=== PATIENT | female | born 1955 | race Caucasian/White ===

== ENCOUNTER 2025-03-17 09:28 | Outpatient (AMB) | payer MEDICARE, OTHER, SELFPAY ==
--- OUTSIDE RECORDS SUMMARY | 2025-03-17 09:41 | XMS_ITS | Encounter Summary ---
Author Organization [facility] Address [address] [place] [address] Care Team Providers Care Agency Sales Development Associate Name Role Phone Pastor Oro DO, Diana Primary Care Provider + Encounter Details Date Type Department Care Team (Late st Contact Info) Description 12/05/2024 Orders Only [facility] CT Scan [address], [place] [phone] Michelle Gonzales MD [address] [place], [place] [phone] Social History Tobacco Use Types Packs/Day Years Used Date Smoking Tobacco: Never Passive Smoke Exposure: Past Smokeless Tobacco: Never Alcohol Use Standard Drinks/Week Comments Not Currently 0 (1 standard drink = 0.6 oz pur e alcohol) occasional - onece a month [facility] Utilities Answer Date Recorded In the past 12 months has e electric, gas, oil, or water [employer] threatened to shut off services in your home? No 12/08/2024 Hunger Vital Sign Answer Date Recorded Within the past 12 months, y ou worried that your food would run out before you got the money to buy more. Never true 12/08/19 25 Within the past 12 months, t he food you bought just didn't last and you didn't have money to get more. Never true 12/08/2024 Transportation Answer Date Recorded In the past 12 months, has l ack of reliable transportation kept you from medical appointments, meetings, work or from getting things needed for daily living? No 12/08/2024 Housing Answer Date Recorded Housing Risk Low 2 12/08/2024 Housing Risk Medium Not on file 12/08/2024 Housing Risk High Not on file 12/08/2024 What is your living situation today? [facility] 12/08/2024 Comments No Sex and Gender Information Value Date Recorded Sex Assigned at Female 03/24/2024 9:56 AM EDT Legal Sex Female 12:05 AM EDT Gender Identity Female 04/14/2024 2:41 PM EDT Sexual Orientation Straight 04/18/2024 8: 44 AM EDT documented as of this encounter Plan of Treatment Upcoming Encounters Date Type Department Care Team (Late st Contact Info) Description 06/07/2025 9:30 AM EDT Office Visit [facility] [address] [facility] Family Practice Department [address] [place] [id number] Malini Godwin NP [address] [place] [address] 06/09/2025 2:30 PM EDT Follow-Up [facility] Nephrology [address] [facility] [address] [place] [address] Bipin Bobby MD [address] [place] [phone] documented as of this encounter Visit Diagnoses Not on filedocumented in this encounter Care Teams Agency Sales Development Associate Relationship Specialty Start Date End Date eKlly Baumann DO [address] [place] [address] PCP - General Family Medicine 03/24/24 documented as of this encounter
--- OUTSIDE RECORDS SUMMARY | 2025-03-17 09:41 | XMS_ITS | Clinical Summary ---
Author Organization [facility] [employer] Address [address] [place] [address] Care Team Providers Care Answering Service Telephone Operator Name Role Phone Nadine Harley NP Primary Care Provider Immunizations Name Administration Dates Next Due Shingrix Recombinant Dose 05/24/2020 Social History Tobacco Use Types Packs/Day Years Used Date Smoking Tobacco: Never Assessed Comments Unknown Sex and Gender Information Value Date Recorded Sex Assigned at Not on file Legal Sex Female 8:47 AM EDT Gender Identity Not on file Sexual Orientation Not on file Plan of Treatment Health Maintenance Due Date Last Done Comments Colorectal Cancer: COLONOS[place] PY Screening every 10 yrs (or Modifier) 1954 Depression: Screening Annual ly using PHQ-2/9 in Adults 18 yrs or above (or HM Modifier)([facility]) 1954 Hepatitis C Virus Infection in Adolescents and Adults: Screening (or Modifier) ([facility]) 1972 SDOH Screening Reminder: Elsa batista for all adults ([facility]) 1972 Tobacco Smoking Cessation: i n Adults excluding Women: Behavioral and Pharmacotherapy Interventions ([facility]) 1972 DTaP/Tdap/Td Vaccines ([facility]) (1 - Tdap) 1973 Colorectal Cancer Screening 45 -75 Yrs (or HM Modifier) 1999 Colorectal Cancer: FLEXIBLE SIGMOIDOSCOPY Screening every 5 yrs 1999 Colorectal Cancer: Fecal Imm unochemical Test (FIT) Annually [facility] 1999 Colorectal Cancer: High-sens itivity gFOBT Screening Annually [facility] 1999 Colorectal Cancer: Stool Col oguard Screening every 3 yrs 1999 Colorectal Cancer:CT Colonog navya Screening every 5 yrs 1999 Lipid Screening: Every 5 yrs for Women aged 45+ (or HM Modifier) ([facility]) 2000 Breast Cancer: Screening Elsa ually age 50-74 yrs (or HM Modifier)([facility]) 2004 Pneumococcal Vaccination Scr eening: Patients 50+ yrs of age ([facility]) (1 of 1 - PCV) 2004 Osteoporosis Screening to Pr event Fractures: Women aged 65 years+ ([facility]) 2019 Zoster/Shingles Vaccine Seri es Screening: Adults aged 18+ yrs (or HM Modifiers)([facility]) (2 of 2) 07/19/2020 05/24/2020 COVID-19 Vaccine Screening: Initial Series and Booster Status ([facility]) (2023- season) 2024 Flu Vaccination: Ages 65+: Y early High Dose Recommended (or Modifier)([facility]) 06/23/2025 RSV Vaccines (1 - 1-dose 75+ series) 2029 [employer] Not on file Insurance Care Teams Answering Service Telephone Operator Relationship Specialty Start Date End Date Nadine Harley NP [address] [place] [id number] PCP - General House Designer 05/24/20
--- OUTSIDE RECORDS SUMMARY | 2025-03-17 09:41 | XMS_ITS | Clinical Summary ---
Author Organization [facility] Address [address] [place] [address] Care Team Providers Care [employer] Sales Rep Name Role Phone Pastor Oro DO, Diana Primary Care Provider + Allergies Active Allergy Reactions Criticality Noted Date Comments Codeine Vomiting 04/13/2024 Bismuth Subsalicylate Vomiting 08/03/2024 Medications * This document contains information received from the source organization and may not represent a complete record from that organization. LORazepam (ATIVAN) 1 mg tablet Take 1 mg by mouth as needed. 10/08/20 23 Active Linzess 145 mcg capsule Take 145 mcg by mouth once a day. Has this Rx, but presently not taking 03/23/20 24 Active Vitamin D3 25 mcg (1,000 unit) capsule Take 1 capsule by mouth every night. Active levothyroxine (SYNTHROID, LEVOTHROID) 88 mcg tabletIndicatio ns:Hypothyroidi sm, unspecified type TAKE 1 TABLET BY MOUTH EVERY DAY 90 tablet 1 01/11/20 25 Active metFORMIN (GLUCOPHAGE) 500 mg tablet Take 1 tablet (500 mg total) by mouth every night. 90 tablet 1 02/17/20 25 Active simvastatin (ZOCOR) 40 mg tabletIndicatio ns:Hypercholest erolemia TAKE 1 TABLET BY MOUTH EVERY DAY AT NIGHT 90 tablet 3 02/21/20 25 Active multivitamin (THERAGRAN) tablet Take 1 tablet by mouth once a day. Active simvastatin (ZOCOR) 40 mg tablet Take 1 tablet (40 mg total) by mouth nightly. 90 tablet 1 10/11/20 24 025 Discontinued tiZANidine (ZANAFLEX) 4 mg tabletIndicatio ns:Left hip pain Take 1 tablet (4 mg total) by mouth every 6 hours as needed for muscle spasms for up to 14 days. 56 tablet 02/04/20 25 025 diclofenac (VOLTAREN) 50 mg EC tabletIndicatio ns:Left hip pain Take 1 tablet (50 mg total) by mouth 2 times a day as needed (pain). 60 tablet 02/04/20 25 025 Active Problems Problem Noted Date Diagnosed Date Hyponatremia 02/21/2025 Disequilibrium 12/15/2024 Assessment & Plan (12/20/2024 1:07 PM EST): November 2024 MRI brain: 1. No acute or subacute infarct. The brainstem is normal in signal. 2. Minimal scattered FLAIR bright foci within the supratentorial white matter are compatible with chronic microangiopathic/small vessel ischemic change. Recommend starting baby aspirin, already on statin. Discussed possible vestibular rehab. Referral to ENT for further workup and evaluation. Orders: Ambulatory referral to ENT; Future Vitamin D deficiency 05/23/2024 Assessment & Plan (05/23/2024 12:14 PM EDT): Vit D level ordered. Continue on Vitamin D supplement. Other insomnia 05/23/2024 Assessment & Plan (05/23/2024 12:17 PM EDT): Difficulty sleeping at night, sleeps 4-5 hours nightly, takes 1/2 marijuana gummy night which helps. Discussed sleep hygiene and nighttime routine. Declines starting any new medications at this time. Major depression, recurrent, chronic 04/13/2024 Assessment & Plan (04/13/2024 4:51 PM EDT): Intermittently mood will decline, takes Lorazepam infrequently PRN. Amitriptyline prescribed for sleep, would like to come off this medication because it does not help, advised to wean off slowly instructions given. Follow up as needed. PTSD (post-traumatic stress disorder) 04/13/2024 Assessment & Plan (07/15/2024 9:26 AM EDT): Takes Lorazepam PRN infrequently. Controlled substance agreement updated in office today. Assessment & Plan (04/13/2024 4:52 PM EDT): Due to her past job. Lorazepam PRN for anxiety. Hypothyroidism 04/13/2024 Assessment & Plan (12/20/2024 1:07 PM EST): TSH stable. Continue current medication as prescribed. TSH, free T4 ordered. Assessment & Plan (12/05/2024 10:21 AM EST): TSH stable. Continue current medication as prescribed. TSH, free T4 ordered. Orders: T4, free; Future Basic metabolic panel; Future Assessment & Plan (07/15/2024 9:26 AM EDT): Clinically Euthyroid, stable on current Levothyroxine dose. TSH due 6 months, order placed. Orders: levothyroxine (SYNTHROID, LEVOTHROID) 88 mcg tablet; Take 1 tablet (88 mcg total) by mouth daily. TSH; Future Assessment & Plan (05/23/2024 12:17 PM EDT): TSH within range. Assessment & Plan (04/13/2024 3:54 PM EDT): Levothyroxine 88mcg. TSH ordered. KELBY on CPAP 04/13/2024 Assessment & Plan (04/13/2024 4:47 PM EDT): Compliant with CPAP use. Other fatigue 04/13/2024 Assessment & Plan (05/23/2024 12:14 PM EDT): Thyroid level is within range. Persistent chronic fatigue, will check Vitamin B12, folate, iron levels, tick/lyme testing. Urine dip in the office was negative for UTI. Assessment & Plan (04/13/2024 4:52 PM EDT): Concerns of fatigue. Hx of Hypothyroidism which may be contributing. TSH and labs ordered. Type 2 diabetes mellitus wit hout complication, without long-term current use of insulin 04/13/2024 Assessment & Plan (12/20/2024 1:07 PM EST): Continue medications as prescribed. Recommend routine A1C monitoring, annual podiatry and ophthalmology exams. Assessment & Plan (12/05/2024 10:21 AM EST): Continue medications as prescribed. Recommend routine A1C monitoring, annual podiatry and ophthalmology exams. Orders: Basic metabolic panel; Future Assessment & Plan (07/15/2024 9:26 AM EDT): Last Ha1c 5.9% in 03/2024, continue on Metformin. Microfilament foot exam WNL. Plans to retest Ha1c in 6 months. Orders: Hemoglobin A1c; Future Assessment & Plan (05/23/2024 12:13 PM EDT): Last Ha1c 5.9%, continue on Metformin 500mg tablet. Assessment & Plan (04/13/2024 4:50 PM EDT): BP 120/72 Pulse 85 Temp 36.4 ??C (97.6 ??F) Ht 1.499 m (4' 11 ) Wt 59 kg (130 lb) SpO2 96% BMI 26.26 kg/m?? Statin: Zocor (simvastatin) Aspirin: no Mental Telepathist: No Last eye exam: 01/2024 Pneumococcal vaccine: Prenar 20 Plan: Continue on Metformin Suggested low cholesterol diet. Encouraged aerobic exercise. Discussed foot care. Reminded to get yearly retinal exam. Interstitial lung disease 04/13/2024 Assessment & Plan (04/13/2024 4:53 PM EDT): Pulmonary scaring. Follows with pulmonology Dr. Borrero through [facility]. Currently not on any inhalers. Other irritable bowel syndrome 04/13/2024 Assessment & Plan (04/13/2024 4:54 PM EDT): Continue on Linzess. Hypercholesterolemia 05/25/2014 Assessment & Plan (04/13/2024 3:52 PM EDT): Continue on Simvstatin. Lipid panel ordered. Resolved Problems Problem Noted Date Diagnosed Date Resolved Date Abdominal mass, LLQ (left lower quadrant) 07/15/2024 02/21/2025 Assessment & Plan (07/15/2024 9:26 AM EDT): Baseball size soft mass palpated to LLQ, non painful. Recent CT abd did not mention mass, has Appt scheduled with Gen surg in 1 wk. Hernia, abdominal 07/15/2024 02/21/2025 Assessment & Plan (07/15/2024 9:26 AM EDT): Ct Abd showed: Small right-sided spigelian type hernia containing fat and small amount of fluid with an adjacent or contiguous fat-containing right inguinal hernia. Has follow up appt scheduled with General Surgery. Right lower quadrant abdomin al tenderness with rebound tenderness 05/23/2024 02/21/2025 Assessment & Plan (05/23/2024 12:15 PM EDT): Abd NT to palpation, no mass felt. BM irregular, Hx of IBS, plans for colonoscopy this month. CT abd ordered to r/o obstruction or acute process. Depressive disorder 04/13/2024 04/13/20 24 Overweight (BMI 25.0-29.9) 04/13/2024 0 02/21/2025 Assessment & Plan (04/13/2024 4:55 PM EDT): Body mass index is 26.26 kg/m??. Advised healthy diet and regular exercise. Essential hypertension 05/25/201404/13 Encounters Date Type Department Care Team Description 02/28/2025 Orders Only [facility] - External Imaging [address] [place] [address] Radiology, External 02/21/2025 3:00 PM EDT Office Visit [facility] Nephrology [address] [facility] [address] [place] [address] Bipin Bobby MD Hyponatremia (Primary Dx) 02/19/[address] Family Practice Department [address] [place] [phone] Kelly Baumann DO Hypercholesterolemia (Primary Dx) 02/16/[address] Practice Department [address] [place] [phone] Talia Roque, JAY JAY 02/14/[address] Department [address] [place] [phone] Kelly Baumann V, DO 02/08/2025 Results Follow-Up [address] Department [address] [place] [phone] Malini Godwin, MARIBELL Results 02/05/2025 Results Follow-Up [address] [address] Kelly Baumann V, DO Results 02/03/2025 11:42 AM EDT - 02/03/2025 11:59 PM EDT Hospital Encounter [facility] Xray Department [address] [place] [phone] Left hip pain Discharge Disposition: Home or Self Care () 02/03/2025 11:42 AM EDT - 02/03/2025 11:59 PM EDT Hospital Encounter [facility] Xray Department [address] [place] [phone] Left hip pain Discharge Disposition: Home or Self Care () 02/03/2025 10:30 AM EDT Office Visit [address] [address] Malini Godwin, CONFLICT RESOLUTION PROFESSIONAL Left hip pain (Primary Dx) 02/01/2025 9:31 AM EDT - 02/01/2025 11:59 PM EDT Hospital Encounter [facility] Ultrasound Department [address] [place] [phone] Thyroid nodule Discharge Disposition: Home or Self Care () 01/18/[address] Practice Department [address] [place] [phone] Immenhausen, Kelly V, DO Results 01/17/2025 Results Follow-Up [address] Practice Department [address] [place] [phone] Immenhausen, Kelly V, DO 01/17/2025 Results Follow-Up [address] [address] Malini Godwin, MARIBELL 01/16/2025 10:04 AM EST - 01/16/2025 11:59 PM EST Hospital Encounter [facility] CT Scan Department [address] [place] [phone] Dizziness; Disequilibrium Discharge Disposition: Home or Self Care () 01/16/2025 9:17 AM EST - 01/16/2025 10:03 AM EST Hospital Encounter [facility] Ultrasound Department [address] [place] [phone] Kidney lesion Discharge Disposition: Home or Self Care () 01/15/2025 Results Follow-Up [address] Practice Department [address] [place] [phone] Immenhausen, Kelly V, DO Results 01/11/[address] Practice Department [address] [place] [phone] Immenhausen, Kelly V, DO 01/10/[address] Family Practice Department [address] [place] [phone] Kelly Baumann V, DO order 01/07/[address] Department [address] [place] [phone] Malini Godwin, CONFLICT RESOLUTION PROFESSIONAL Hypothyroidism, unspecified type 12/28/2024 myChart Message [facility] [address] [facility] Department [address] [place] [phone] Mychart, Generic Provider Follow-up from Last 3 Months Immunizations Immunization Administration Dates Next Due COVID-19, Moderna, mRNA, LNP -S, Bivalent Booster, PF 08/21/2022 Covid-19 Monovalent Vaccine, Moderna, mRNA, PF 04/17/2022,09/19/2021,02/16/2021,01/18 Covid-19, Moderna, mRNA, Vac cine, PF, 50 mcg/0.5 mL (for age 12 y and up) 08/29/2024,08/25/2023 Influenza, High Dose Seasona l, Preservative Free 08/29/2024,08/09/2019 Influenza, High Dose Seasona l, Quadrivalent PF 07/24/2021 Influenza, Injectable, Madin Denmark Canine Kidney, Preservative Free, Quadrivalent 08/23/2018 Influenza, Injectable, Quadr ivalent Preservative Free 08/12/2023,08/21/2022 Influenza, Injectable, Quadr ivalent, Preservative Free 08/07/2017 Influenza, Quadrivalent, Rec ombinant, Injectable, PF 08/20/2020 Influenza, Trivalent, MDV, Injectable 08/11/2016 ,2011,08/12/2010 Pneumococcal Conjugate Vacci ne, 13 Valent 10/06/2019,02/25/2016 Pneumococcal Polysaccharide Vaccine, 23 Valent 09/06/2020 Pneumococcal conjugate PCV20,polysaccharide [id number] conjugate, adjuvant, PF (Prevnar 20) 02/18/2023 RSV vaccine, recombinant, pr otein subunit RSVpreF, adjuvant reconstituted, 0.5 mL, PF 08/12/2023 Tetanus Toxoid, Reduced Diph theria Toxoid, and Acellular Pertussis Vaccine, Adsorbed 10/09/2020 Zoster Vaccine Recombinant 05/24/2020,01/12/2020 Family History Medical History Relation Name Comments Diabetes Mother Hypertension Mother Other Mother No pertinent fa nayla history Relation Name Status Comments Mother Social History Tobacco Use Types Packs/Day Years Used Date Smoking Tobacco: Never Passive Smoke Exposure: Past Smokeless Tobacco: Never Tobacco Cessation:Counseling Given: Not Answered Alcohol Use Standard Drinks/Week Comments Not Currently 0 (1 standard drink = 0.6 oz pur e alcohol) occasional - onece a month [facility] Utilities Answer Date Recorded In the past 12 months has th e [employer], gas, oil, or water [employer] threatened to shut off services in your [...] Orientation Straight 04/18/2024 8: 44 AM EDT Last Filed Vital Signs Vital Sign Reading Time Taken Comments Blood Pressure 130/60 02/21/2025 2:59 PM EDT Pulse 78 02/03/2025 10:30 AM EDT Temperature 36.7 ??C (98.1 ??F) 02/03/2025 10:30 AM E DT Respiratory Rate 18 08/18/2024 10:41 AM EDT Oxygen Saturation 99% 02/03/2025 10:30 AM EDT Inhaled Oxygen Concentration - - Weight 52.9 kg (116 lb 9.6 oz) 02/03/2025 10:30 AM EDT Height 149.9 cm (4' 11 ) 02/03/2025 10:30 AM EDT Body Mass Index 23.55 02/03/2025 10:30 AM EDT Plan of Treatment Upcoming Encounters Date Type Department Care Team (Late st Contact Info) Description 06/07/2025 9:30 AM EDT Office Visit [facility] [address] [facility] Family Practice Department [address] [place] [address] Malini Godwin NP [address] [place] [address] 06/09/2025 2:30 PM EDT Follow-Up [facility] Nephrology [address] [facility] [address] [place] [address] Bipin Bobby MD [address] [place] [phone] Health Maintenance Due Date Last Done Comments Cologuard 1954 FOBT / Fit Test 1954 Sigmoidoscopy 1954 Medicare AWV 1955 Osteoporosis Screening 2004 Health Care Proxy Review 11/23/2024 COVID-19 Vaccine ( season) 2025 08/29/2024, 08/25/2023, 08/21/2022, Additional history exists Ophthalmology Exam 03/07/2025 03/07/2024 Urine Microalbumin 04/19/2025 04/19/2024 Hemoglobin A1C 06/04/2025 12/05/2024, 04/19/2024 Depression Screening and Follow-Up 12/08/2025 12/08/2024 Social Drivers of Health Annual Screening 12/08/2025 12/08/2024 Basic Metabolic Panel 01/11/2026 01/11/2025 , 12/05/2024, 12/05/2024, Additional history exists Mammogram 06/06/2026 06/06/2024, 04/23, 05/15/2023 DTaP,Tdap,and Td Vaccines (2 - Td or Tdap) 10/09/2030 10/09/2020 Colon Cancer Screening 06/16/2034 Colonoscopy 06/16/2034 06/16/2024, 05/24, 06/16/2024 Zoster Vaccines Completed 05/24/2020, 01/12/2020 Pneumococcal Vaccine: 50+ Years Completed 02/18/2023, 09/06/2020, 10/06/2019, Additional history exists RSV Vaccine (60+ years old and patients) Completed 08/12/2023 Influenza Vaccine Completed 08/29/2024, , 08/21/2022, Additional history exists Hepatitis C Screening Completed 12/05/2024 Alcohol/Substance Use Screening Completed 02/03/2025 Hepatitis B Vaccines Aged Out No long er eligible based on patient's age to complete this topic Medical Devices Implanted Type Area Blanking Press Operator Device Identifier Shelf Expiration Date Model / Serial / Lot Mesh Inguinal Light Left Medium 3.1inx5.3in 3dmax - [id number] Implanted:Qty: 1 on 08/10/2024 by Leonid Doe MD at [facility] Mesh Left: Groin [employer] 02/17/2027 [id number] / / [id number] Mesh Inguinal Light Right Medium 3.1inx5.3in 3dmax - [id number] Implanted:Qty: 1 on 08/10/2024 by Leonid Doe MD at [facility] Mesh Right: Groin [employer] 09/19/2028 [id number] / / [id number] Procedures * Due to [place] state law, this organization might not be sharing negative HIV tests. Procedure Name Priority Date/Time Associated Diagnosis Comments XR LUMBAR SPINE 2 OR 3 VIEWS Routine 02/03/2025 12:02 PM EDT Left hip pain XR HIP LEFT 2+ VIEW W PELVIS Routine 02/03/2025 12:02 PM EDT Left hip pain US HEAD NECK SOFT TISSUE Routine 02/01/2025 10:44 AM EDT Thyroid nodule MRI CERVICAL SPINE WO CONTRAST Routine 01/23/2025 5:50 PM EST Disc narrowing CT ANGIOGRAM NECK W CONTRAST Routine 01/16/2025 10:46 AM EST Dizziness Disequilibrium US KIDNEY AND BLADDER COMPLETE Routine 01/16/2025 10:04 AM EST Kidney lesion BASIC METABOLIC PANEL Routine 01/11/2025 9:15 AM EST Kidney lesion HEPATITIS C ANTIBODY W/REFLEX TO HCV RNA, QUANTITATIVE PCR Routine 12/05/2024 10:51 AM EST Encounter for hepatitis C screening test for low risk patient HEMOGLOBIN A1C Routine 12/05/2024 10:51 AM EST Type 2 diabetes mellitus without complication, without long-term current use of insulin COLONOSCOPY 06/16/2024 BRIAN RIGHT ADD VIEWS DIGITAL MAMMO AND TERRENCE Routine 06/06/2024 1:29 PM EDT Breast asymmetry MICROALBUMIN, RANDOM URINE WITH CREATININE Routine 04/19/2024 8:25 AM EDT Type 2 diabetes mellitus without complication, without long-term current use of insulin from Last 3 Months or Most Recently Relevant to Health Maintenance Results * Due to [place] state law, this organization might not be sharing negative HIV tests. * X-Ray Lumbar Spine 2 or 3 Views (02/03/2025 12:02 PM EDT) Anatomical Region Laterality Modality Spine, L-spine Radiographic Peggy ging 02/03/2025 6:50 PM EDT Impressions 02/03/2025 6:53 PM EDT FINDINGS/IMPRESSION: Lumbar spine: There is transitional anatomy. For purposes of this report, there is partial lumbarization of S1 and hypoplastic ribs at L1. The normal lumbar lordosis is maintained. Grade 1 anterolisthesis of L5-S1. Chronic anterior wedging of the T12 and L1 vertebral bodies, likely chronic. Multilevel disc degeneration, mild to moderate at L5-S1. Multilevel facet arthropathy most advanced within the lower lumbar spine. Multilevel intraspinous degeneration. Vascular atherosclerotic calcifications. Left hip and pelvis: No radiographic evidence of acute fracture or dislocation. Both hips are congruent, with preserved joint spaces. Mild degenerative changes of the pubis symphysis and sacroiliac joints. The sacrum is obscured by overlying soft tissue structures. If this radiology report contains a blank impression section, it is an incomplete radiology report. ??Please contact the interpreting radiologist or applicable radiology division as soon as possible to obtain the completed interpretation. ? Workstation ID: [id number] Narrative 02/03/2025 6:53 PM EDT COMPARISON: There are no prior studies available for comparison at this time. Resulting Agency Comment [id number] Procedure Note Carmelo Cobos MD - 02/03/2025 COMPARISON: There are no prior studies available for comparison at thistime. IMPRESSION: FINDINGS/IMPRESSION: Lumbar spine: There is transitional anatomy. For purposes of this report,there is partial lumbarization of S1 and hypoplastic ribs at L1. Thenormal lumbar lordosis is maintained. Grade 1 anterolisthesis of L5-S1.Chronic anterior wedging of the T12 and L1 vertebral bodies, likelychronic. Multilevel disc degeneration, mild to moderate at L5-S1.Multilevel facet arthropathy most advanced within the lower lumbar spine.Multilevel intraspinous degeneration. Vascular atheroscleroticcalcifications. Left hip and pelvis: No radiographic evidence of acute fracture ordislocation. Both hips are congruent, with preserved joint spaces. Milddegenerative changes of the pubis symphysis and sacroiliac joints. Thesacrum is obscured by overlying soft tissue structures. If this radiology report contains a blank impression section, it is anincomplete radiology report. Please contact the interpreting radiologistor applicable radiology division as soon as possible to obtain thecompleted interpretation. Workstation ID: [id number] us Malini Godwin CONFLICT RESOLUTION PROFESSIONAL IMG XR PROCEDURES Final Result * XR Hip Left 2+ View W Pelvis (02/03/2025 12:02 PM EDT) Anatomical Region Laterality Modality Body, Pelvis, Hip Left Radiographic I magfrancesca 02/03/2025 6:50 PM EDT Impressions 02/03/2025 6:53 PM EDT FINDINGS/IMPRESSION: Lumbar spine: There is transitional anatomy. For purposes of this report, there is partial lumbarization of S1 and hypoplastic ribs at L1. The normal lumbar lordosis is maintained. Grade 1 anterolisthesis of L5-S1. Chronic anterior wedging of the T12 and L1 vertebral bodies, likely chronic. Multilevel disc degeneration, mild to moderate at L5-S1. Multilevel facet arthropathy most advanced within the lower lumbar spine. Multilevel intraspinous degeneration. Vascular atherosclerotic calcifications. Left hip and pelvis: No radiographic evidence of acute fracture or dislocation. Both hips are congruent, with preserved joint spaces. Mild degenerative changes of the pubis symphysis and sacroiliac joints. The sacrum is obscured by overlying soft tissue structures. If this radiology report contains a blank impression section, it is an incomplete radiology report. ??Please contact the interpreting radiologist or applicable radiology division as soon as possible to obtain the completed interpretation. ? Workstation ID: [id number] Narrative 02/03/2025 6:53 PM EDT COMPARISON: There are no prior studies available for comparison at this time. Resulting Agency Comment [id number] Procedure Note Carmelo Cobos MD - 02/03/2025 COMPARISON: There are no prior studies available for comparison at thistime. IMPRESSION: FINDINGS/IMPRESSION: Lumbar spine: There is transitional anatomy. For purposes of this report,there is partial lumbarization of S1 and hypoplastic ribs at L1. Thenormal lumbar lordosis is maintained. Grade 1 anterolisthesis of L5-S1.Chronic anterior wedging of the T12 and L1 vertebral bodies, likelychronic. Multilevel disc degeneration, mild to moderate at L5-S1.Multilevel facet arthropathy most advanced within the lower lumbar spine.Multilevel intraspinous degeneration. Vascular atheroscleroticcalcifications. Left hip and pelvis: No radiographic evidence of acute fracture ordislocation. Both hips are congruent, with preserved joint spaces. Milddegenerative changes of the pubis symphysis and sacroiliac joints. Thesacrum is obscured by overlying soft tissue structures. If this radiology report contains a blank impression section, it is anincomplete radiology report. Please contact the interpreting radiologistor applicable radiology division as soon as possible to obtain thecompleted interpretation. Workstation ID: [id number] us Malini Godwin NP IMG XR PROCEDURES Final Result * US Head And/Or Neck Soft Tissue (02/01/2025 10:44 AM EDT) Anatomical Region Laterality Modality Head and Neck N/A Ultrasound 02/01/2025 12:3 2 PM EDT Impressions 02/01/2025 12:39 PM EDT 1. Atrophic, heterogeneous thyroid gland in keeping with chronic thyroiditis (e.g. Aleyda's). 2. Thyroid nodules as detailed above. No follow-up required per ACR TI-RADS guidelines ACR TI-RADS recommendations TR5 (greater than or equal to 7 points): FNA if 1 cm or larger; follow-up ultrasound if 0.5 - 0.9 cm, yearly for 5 years. TR4 (4-6 points): FNA if 1.5 cm or larger; follow-up ultrasound if 1 - 1.4 cm in 1, 2, 3, and 5 years. TR3 (3 points): FNA if 2.5 cm or larger; follow-up ultrasound if 1.5 - 2.4 cm in 1, 3, and 5 years. TR2 (2 points) and TR1 (0 points): No FNA or follow-up ultrasound. Reference: Tessler FN et al. J Am Karina Radiol. 14:5, March 2017, [phone]. If this radiology report contains a blank impression section, it is an incomplete radiology report. ??Please contact the interpreting radiologist or applicable radiology division as soon as possible to obtain the completed interpretation. ? Workstation ID: [id number] Narrative 02/01/2025 12:39 PM EDT EXAMINATION: ULTRASOUND SOFT TISSUE NECK AND THYROID. INDICATION: Incidental thyroid nodules. TECHNIQUE: Ultrasound of the soft tissues of the neck and thyroid. Multiple grayscale and color Doppler images were obtained. COMPARISON: CT of the neck from 01/16/2025. FINDINGS: The thyroid gland demonstrates diffusely heterogeneous parenchymal echotexture. No hypervascularity on color Doppler. The thyroid isthmus measures 0.3 cm. The right lobe measures 1.0 x 1.1 x 2.9 cm (volume 1.5 mL). The left lobe measures 3.2 x 1.0 x 0 point cm (volume 1.1 mL). Nodule #2 Size: 1.0 x 0.5 x 0.7 cm Location: Left lobe, upper. Morphology: Solid (2 points); Hyperechoic or isoechoic (1 point); Iojeq-lrsn-avhq shape (0 points); Smooth margins (0 points); No echogenic foci (0 points). TI-RADS category: TR 3 (3 points) Significant change in size: Not applicable There are subcentimeter solid, isoechoic nodule within the right lower thyroid lobe and left upper thyroid lobe, likely representing white potter nodules in the setting of background autoimmune thyroiditis. Additional nodules: A few subcentimeter coarse calcifications are noted scattered throughout the gland. No cervical lymphadenopathy. Resulting Agency Comment [id number] Procedure Note Kin Robledo MD - 02/01/2025 EXAMINATION: ULTRASOUND SOFT TISSUE NECK AND THYROID. INDICATION: Incidental thyroid nodules. TECHNIQUE: Ultrasound of the soft tissues of the neck and thyroid.Multiple grayscale and color Doppler images were obtained. COMPARISON: CT of the neck from 01/16/2025. FINDINGS: The thyroid gland demonstrates diffusely heterogeneous parenchymalechotexture. No hypervascularity on color Doppler. The thyroid isthmus measures 0.3 cm. The right lobe measures 1.0 x 1.1 x 2.9 cm (volume 1.5 mL). The left lobe measures 3.2 x 1.0 x 0 point cm (volume 1.1 mL). Nodule #2 Size: 1.0 x 0.5 x 0.7 cm Location: Left lobe, upper. Morphology: Solid (2 points); Hyperechoic or isoechoic (1 point);Iftvn-uffk-qxxf shape (0 points); Smooth margins (0 points); No echogenicfoci (0 points). TI-RADS category: TR 3 (3 points) Significant change in size: Not applicable There are subcentimeter solid, isoechoic nodule within the right lowerthyroid lobe and left upper thyroid lobe, likely representing whiteknight nodules in the setting of background autoimmune thyroiditis. Additional nodules: A few subcentimeter coarse calcifications are notedscattered throughout the gland. No cervical lymphadenopathy. IMPRESSION: 1. Atrophic, heterogeneous thyroid gland in keeping with chronicthyroiditis (e.g. Aleyda's). 2. Thyroid nodules as detailed above. No follow-up required per ACRTI-RADS guidelines ACR TI-RADS recommendations TR5 (greater than or equal to 7 points): FNA if 1 cm or larger; follow- upultrasound if 0.5 - 0.9 cm, yearly for 5 years. TR4 (4-6 points): FNA if 1.5 cm or larger; follow-up ultrasound if 1 - 1.4cm in 1, 2, 3, and 5 years. TR3 (3 points): FNA if 2.5 cm or larger; follow-up ultrasound if 1.5 - 2.4cm in 1, 3, and 5 years. TR2 (2 points) and TR1 (0 points): No FNA or follow-up ultrasound. Reference: Maris FN et al. J Am Karina Radiol. 14:5, March 2017, [phone]. If this radiology report contains a blank impression section, it is anincomplete radiology report. Please contact the interpreting radiologistor applicable radiology division as soon as possible to obtain thecompleted interpretation. Workstation ID: [id number] us Kelly Oro DO IMG US PROCEDURES Final Result * MRI Cervical Spine without Contrast (01/23/2025 5:50 PM EST) Anatomical Region Laterality Modality Spine, C-spine Magnetic Resonan ce 01/23/2025 5:20 PM EST Narrative 01/25/2025 10:44 AM EST [facility], [facility] Accession Number: [id number] Patient Name: Kacy Alaniz Date of : 1955 Date of Exam: 01-23-2025 Referring Physician: Kelly Baumann ?[facility] ?[address] ?[place] [address] Exam: MR Cervical Spine (C-) CPT 45333 Room Description: [facility] 1.5 MRI of the cervical spine without contrast. HISTORY: Neck pain. COMPARISON: None. FINDINGS: There is mild cord compression at C4-C5 to C6-C7 levels due to spondylosis. No abnormal cord signal. The cervical spine alignment shows a minimally reversed lordosis centered at C3-C4. There is a minimal anterolisthesis at C3 over C4 and a mild anterolisthesis of C7 over T1. There is a mild retrolisthesis is seen at C4 over C5 and C5 over C6. No vertebral body fracture is seen. The bone marrow signals are within normal limits. Disc desiccation is seen diffusely. C3-C4 to C6-C7 levels have anterior osteophytes, severe disc space narrowing and degenerative endplate changes. C2-C3 level has no disc herniation, stenosis or neural foramen narrowing. The right facet joint is mildly degenerative. C3-C4 level has no disc herniation or stenosis. There are mild uncovertebral joint osteophytes and mild degenerative facet arthropathy bilaterally. Mild bilateral neural foramen narrowing. C4-C5 level has a moderate broad-based posterior osteophyte/disc protrusion complex. This causes spinal canal stenosis with mild cord compression. No abnormal cord signal. There are mild uncovertebral joint osteophytes bilaterally causing moderate neuroforamen narrowing. C5-C6 level has a broad-based posterior osteophyte/disc bulge. This causes spinal canal stenosis with mild cord compression. No abnormal cord signal. There are uncovertebral joint osteophytes bilaterally causing moderate neuroforaminal narrowing. C6-C7 level has a moderate broad-based central to the right osteophyte/disc protrusion complex. This causes spinal canal stenosis with mild right-sided cord compression, more on the right . No abnormal cord signal. There are moderate uncovertebral joint osteophytes bilaterally. Severe right and moderate to severe left neural foramen narrowing. C7-T1 level has a mild disc bulge. No stenosis or neural foraminal narrowing. The major vascular flow voids are intact. The prevertebral and paravertebral soft tissues are within normal limits. IMPRESSION: Multiple levels of cervical spondylosis with stenosis and cord compression from C4-C5 to C6-C7 levels as described above. No abnormal cord signal. Electronically Signed By: Jose Juan Franco MD Procedure Note Provider, Jeanne - 01/25/2025 [place] [facility], [facility] Accession Number: [id number] Patient Name: Kacy Alaniz Date of : 1955 Date of Exam: 01-23-2025 Referring Physician: Kelly Baumann [address] [address] Exam: MR Cervical Spine (C-) CPT 50536 Room Description: [facility] 1.5 MRI of the cervical spine without contrast. HISTORY: Neck pain. COMPARISON: None. FINDINGS: There is mild cord compression at C4-C5 to C6-C7 levels due to spondylosis. No abnormal cord signal. The cervical spine alignment shows a minimally reversed lordosis centered at C3-C4. There is a minimal anterolisthesis at C3 over C4 and a mild anterolisthesis of C7 over T1. There is a mild retrolisthesis is seen at C4 over C5 and C5 over C6. No vertebral body fracture is seen. The bone marrow signals are within normal limits. Disc desiccation is seen diffusely. C3-C4 to C6-C7 levels have anterior osteophytes, severe disc space narrowing and degenerative endplate changes. C2-C3 level has no disc herniation, stenosis or neural foramen narrowing. The right facet joint is mildly degenerative. C3-C4 level has no disc herniation or stenosis. There are mild uncovertebral joint osteophytes and mild degenerative facet arthropathy bilaterally. Mild bilateral neural foramen narrowing. C4-C5 level has a moderate broad-based posterior osteophyte/disc protrusion complex. This causes spinal canal stenosis with mild cord compression. No abnormal cord signal. There are mild uncovertebral joint osteophytes bilaterally causing moderate neuroforamen narrowing. C5-C6 level has a broad-based posterior osteophyte/disc bulge. This causes spinal canal stenosis with mild cord compression. No abnormal cord signal. There are uncovertebral joint osteophytes bilaterally causing moderate neuroforaminal narrowing. C6-C7 level has a moderate broad-based central to the right osteophyte/disc protrusion complex. This causes spinal canal stenosis with mild right-sided cord compression, more on the right . No abnormal cord signal. There are moderate uncovertebral joint osteophytes bilaterally. Severe right and moderate to severe left neural foramen narrowing. C7-T1 level has a mild disc bulge. No stenosis or neural foraminal narrowing. The major vascular flow voids are intact. The prevertebral and paravertebral soft tissues are within normal limits. IMPRESSION: Multiple levels of cervical spondylosis with stenosis and cord compression from C4-C5 to C6-C7 levels as described above. No abnormal cord signal. Electronically Signed By: Jose Juan Franco MD Kelly Oro DO IMG MRI PROCEDURES Final Result * CT Angiogram Neck W Contrast (01/16/2025 10:46 AM EST) Anatomical Region Laterality Modality Head and Neck Computed Tomogra phy 01/16/2025 11:5 0 AM EST Impressions 01/17/2025 3:11 PM EST No occlusion, hemodynamically significant stenosis or dissection of neck arteries, consider brain MRI correlation if not otherwise contraindicated.. Small/heterogeneous thyroid lobes due to scattered nodules/calcifications, ultrasound correlation can be helpful. Spondylosis/degenerative listhesis with moderate to severe C4-5 cervical canal/foraminal stenosis, advise cervical spine MRI to further evaluate for canal stenosis and/or possible cord compression if not otherwise contraindicated (yellow alert). Appropriate clinical, imaging correlation and follow-up advised. COMMUNICATION: A(n) Yellow actionable finding has been communicated to the ordering or responsible provider via the [employer] Findings system on 01/17/2025 3:10 PM. ??Receipt of this communication by the responsible provider will be documented in [employer] Findings upon receiving acknowledgement if applicable, Message ID [id number]. If this radiology report contains a blank impression section, it is an incomplete radiology report. ??Please contact the interpreting radiologist or applicable radiology division as soon as possible to obtain the completed interpretation. ? Workstation ID: [id number] Up-to-date CT equipment and radiation dose reduction techniques were employed. CTDIvol: 1.0 - 9.9 mGy. DLP: 307 mGy-cm. Narrative 01/17/2025 3:11 PM EST EXAMINATION: CTA OF NECK WITH CONTRAST TECHNIQUE: CT angiogram of neck following intravenous administration of standard dose of Omnipaque. 3-D maximum intensity projection and volume rendered images were created. To the best of my knowledge this study has been performed within 24 hours of patient's arrival to the hospital. Degree of stenosis estimated using NASCET criteria. Carotid stenosis Reference: Mild = <50% stenosis. Moderate = 50-69% stenosis. Severe = 70-89% stenosis. Hairline/critical = 90-99% stenosis. Occluded = 100% stenosis. CLINICAL INFORMATION: Dizziness and giddiness, disequilibrium, COMPARISON: There are no prior comparable studies available at this time. CTA NECK 3 great arteries arising from the left-sided aortic arch. Common carotid arteries are comparable in appearance. ??Carotid bulbs are well preserved without obvious stenosis or ulcerating plaque. The internal and external carotid artery origins are also well preserved without hemodynamically significant stenosis or discrete ulceration. ??Cervical ICAs are comparable in appearance without obvious irregularity, beaded appearance or intimal flap. ??Cervical internal carotid arteries are slightly tortuous towards the skull base. ??Intracranial internal carotid arteries are terminating in ipsilateral A1 and M1 segments. ??Correlation with brain MRI can be helpful if there are no known contraindications. The vertebral artery origins are normally visualized. ??Bilateral vertebral arteries maintain normal contour and enhancement without obvious irregularity or narrowing. No obvious lymphadenopathy or drainable collection is seen in the neck soft tissues. ??Tiny thyroid lobes are heterogeneous in texture due to scattered nodules and calcifications. ??Ultrasound correlation can be helpful. Degenerative listhesis is noted in the lower cervical spine. ??Spondylosis with asymmetric degenerative buildup is leading up to moderate to severe C4-5, mild to moderate C5-6, C6-7 central canal/foraminal stenosis. ??MRI can be helpful to better evaluate canal contents and for possible cord compression if there are no known contraindications. ??The craniocervical junction is normally visualized. Lung apices are clear. Resulting Agency Comment [id number] us Kelly Baumann V, DO IMG CT PROCEDURES Edited Result - Final * US Kidney Complete and Bladder (01/16/2025 10:04 AM EST) Anatomical Region Laterality Modality Body N/A Ultrasound 01/16/2025 12:3 5 PM EST Impressions 01/16/2025 12:38 PM EST Tiny renal cysts bilaterally, with no suspicious parenchymal textural abnormality. No shadowing stone or hydronephrosis on either side. If this radiology report contains a blank impression section, it is an incomplete radiology report. ??Please contact the interpreting radiologist or applicable radiology division as soon as possible to obtain the completed interpretation. ? Workstation ID: [id number] Narrative 01/16/2025 12:38 PM EST EXAMINATION: Ultrasound kidneys and bladder. INDICATION: Assess renal parenchyma TECHNIQUE: Ultrasound evaluation of the kidneys and bladder. Multiple grayscale and color Doppler images were obtained. COMPARISON: No previous renal ultrasound. Abdomen CT report 05/27/2024 FINDINGS: RIGHT KIDNEY: ??The right kidney measures 9.6 cm. A midpole 1.1 x 0.8 cm cyst appears to be simple although it is too small to accurately characterize. The parenchyma is otherwise within normal limits. There is no shadowing stone or hydronephrosis. LEFT KIDNEY: ??The left kidney measures 9.4 cm. An upper pole 0.9 x 1.0 cm cyst appears to be simple although it is too small to accurately characterize. The parenchyma is otherwise within normal limits. There is no shadowing stone or hydronephrosis. BLADDER: The bladder is unremarkable in sonographic appearance. Prevoid, bladder volume is 184 mL. Post void residual bladder volume is 10 mL. No shadowing stone in the bladder. Resulting Agency Comment [id number] Procedure Note González Rueda MD - 01/16/2025 EXAMINATION: Ultrasound kidneys and bladder. INDICATION: Assess renal parenchyma TECHNIQUE: Ultrasound evaluation of the kidneys and bladder. Multiplegrayscale and color Doppler images were obtained. COMPARISON: No previous renal ultrasound. Abdomen CT report 05/27/2024 FINDINGS: RIGHT KIDNEY: The right kidney measures 9.6 cm. A midpole 1.1 x 0.8 cmcyst appears to be simple although it is too small to accuratelycharacterize. The parenchyma is otherwise within normal limits. There isno shadowing stone or hydronephrosis. LEFT KIDNEY: The left kidney measures 9.4 cm. An upper pole 0.9 x 1.0 cmcyst appears to be simple although it is too small to accuratelycharacterize. The parenchyma is otherwise within normal limits. There isno shadowing stone or hydronephrosis. BLADDER: The bladder is unremarkable in sonographic appearance. Prevoid,bladder volume is 184 mL. Post void residual bladder volume is 10 mL. Noshadowing stone in the bladder. IMPRESSION: Tiny renal cysts bilaterally, with no suspicious parenchymal texturalabnormality. No shadowing stone or hydronephrosis on either side. If this radiology report contains a blank impression section, it is anincomplete radiology report. Please contact the interpreting radiologistor applicable radiology division as soon as possible to obtain thecompleted interpretation. Workstation ID: [id number] us Malini Godwin NP IMG US PROCEDURES Final Result * (ABNORMAL) Basic metabolic panel (01/11/2025 9:15 AM EST) NA 130(L) 136 - 145 mmol/L 01/11/2025 3:17 PM EST [facility] K 4.4 3.5 - 5.1 mmol/L 01/11/2025 3:17 PM EST [facility] Cl 93(L) 98 - 109 mmol/L 01/11/2025 3:17 PM EST [facility] CO2 26 22 - 32 mmol/L 01/11/2025 3:17 PM EST [facility] BUN 10 8 - 23 mg/dL 01/11/2025 3:17 PM EST [facility] Creatinine 0.63 0.50 - 1.12 mg/dL 01/11/2025 3:17 PM EST [facility] Glucose 99 60 - 99 mg/dL 01/11/2025 3:17 PM EST [facility] Calcium 9.6 8.4 - 10.4 mg/dL 01/11/2025 3:17 PM EST [facility] Anion Gap 15 >=0 01/11/2025 3:17 PM EST [facility] eGFR >90 >=60 mL/min/1. 73m2 01/11/2025 3:17 PM EST [facility] Comment:The estimated glomer ular filtration rate (eGFR) is calculated using a new formula developed by the NKF-ASN task force to eliminate race-based correction factors. The new formula uses serum/plasma creatinine, age, and gender to determine eGFR. A value below 60mls/min might indicate kidney disease and will be flagged. For additional information, see Kern et al, Am J Kidney Dis. 2021;79(2):268- 288, A Unifying Approach for GFR estimation: Recommendations of the NKF-ASN Task Force on Reassessing the Inclusion of Race in Diagnosing Kidney Disease . Blood Structure of peripheral vein / Unknown Venipuncture / Unknown 01/11/2025 9:15 AM EST 01/11/2025 12:54 PM EST us Kelly Baumann V, DO LAB BLOOD ORDERABLES Fin al Result [facility] [address] [place] [address], [place] [phone] * Hepatitis C Antibody w/Reflex to HCV RNA, Quantitative PCR (12/05/2024 10:51 AM EST) Pathologist [facility] Hepatitis C Antibody Interpretation Nonreactive Nonreactive 12/05/2024 4:26 PM EST [facility] Blood Structure of peripheral vein / Unknown Venipuncture / Unknown 12/05/2024 10:51 AM EST 12/05/2024 12:45 PM EST Kelly Baumann V, DO LAB BLOOD ORDERABLES Fin al Result [facility] [address] [place] [address], * (ABNORMAL) Hemoglobin A1c (12/05/2024 10:51 AM EST) Pathologist [facility] Hemoglobin A1c 6.0(H) 4.0 - 5.7 % 12/05/2024 2:18 PM EST [facility] Estimated Average Glucose 126 mg/dL 12/05/2024 2:18 PM EST [facility] Blood Structure of peripheral vein / Unknown Venipuncture / Unknown 12/05/2024 10:51 AM EST 12/05/2024 12:44 PM EST Malini Godwin CONFLICT RESOLUTION PROFESSIONAL LAB BLOOD ORDERABL ES Final Result [facility] [address] [place] [address], [place] [phone] * COLONOSCOPY (06/16/2024) Narrative Procedure Note Meet Méndez MD - 06/16/2024 7:44 AM EDT [facility] Patient Name: Kacy Alaniz Procedure Date: 06/16/2024 7:44 AM Date of : 1955 Admit Type: Outpatient Age: 68 Room: GI PROCEDURE Gender: Female Note Status: Finalized Attending MD: Meet Méndez MD Procedure: Colonoscopy Indications: Generalized abdominal pain, Change in bowel habits Comorbidities Providers: Meet Méndez MD Referring MD: Kelly Baumann V (Referring MD) Requesting Provider: Medicines: See the Anesthesia note for documentation of the administered medications Complications: No immediate complications. Estimated Blood Loss: Estimated blood loss: none. Procedure: After I obtained informed consent, the scope was passed under direct vision. Throughout theprocedure, the patient's blood pressure, pulse, and oxygen saturations were monitored continuously. The Colonoscope was introduced through the anus and advanced to the cecum, identified by appendiceal orifice and ileocecal valve. The colonoscopy was performed without difficulty. The patient tolerated the procedure well. The quality of the bowel preparation was good. informed consent included but was not limited to fever, infections, bleeding, perforation, missed pathology, damage to a majororgan and lack of guarantee of benefit Findings: Hemorrhoids were found on perianal exam. A few small-mouthed diverticula were found in the sigmoid colon. No additional abnormalities were found on retroflexion. Impression: - Hemorrhoids found on perianal exam. - Diverticulosis in the sigmoid colon. - No specimens collected. Recommendation: - Resume regular diet today. - Dr Méndez' office will make an appointment withDr Doe for consideration of hernia repair Meet Méndez MD 06/16/2024 1:15:14 PM This report has been signed electronically. Number of Addenda: 0 Note Initiated On: 06/16/2024 7:44 AM Meet Méndez MD PROVATION PROCEDURES Final Re sult * [facility] Right Add Views Digital Mammo and Terrence (06/06/2024 1:29 PM EDT) Anatomical Region Laterality Modality Breast Right Mammography Narrative 06/06/2024 1:38 PM EDT INDICATIONS Additional evaluation of right breast asymmetry. TECHNIQUE [facility] Right Add Views Digital Mammo and Terrence. R2 CAD were used in the interpretation of this study. COMPARISON Multiple priors on PACS FINDINGS The right breast has scattered areas of fibroglandular density. ?? Previously seen asymmetry in the right superior breast on MLO view does not persist on spot compression or mediolateral view. ??There is no evidence of suspicious masses, calcifications, or other abnormal findings in the right breast. IMPRESSION BI-RADS?? ATLAS category (right): 1 - Negative No evidence of malignancy. MANAGEMENT Back on Schedule is recommended for right. ?? The patient was entered into a reminder system with a target date for their next breast imaging exam. If this radiology report contains a blank impression section, it is an incomplete radiology report. ??Please contact the interpreting radiologist or applicable radiology division as soon as possible to obtain the completed interpretation. Malini Godwin NP IMG BI PROCEDURES Final Result * Microalbumin / creatinine, urine ratio (Lab Collect) (04/19/2024 8:25 AM EDT) Creatinine, Urine 105 mg/dL 04/19/2024 3:03 PM EDT [facility] Microalbumin, Urine 4 <=20 mg/L 04/19/2024 3:03 PM EDT [facility] Microalb/Creat Ratio, Random Urine 3.8 1.3 - 30.0 mg/g 04/19/2024 3:03 PM EDT [facility] Urine Urine specimen collection, clean catch / Unknown Non-Blood Collection / Unknown 04/19/2024 8:25 AM EDT 04/19/2024 12:43 PM EDT us Malini Godwin CONFLICT RESOLUTION PROFESSIONAL LAB URINE ORDERABL ES Final Result [facility] [address] [place] [address], [place] [phone] from Last 3 Months or Most Recently Relevant to Health Maintenance Insurance MEDICARE [facility] MEDICARE [facility] Advance Directives * Presumed Full Code (Latest Code Status on File) Date Activated Date Inactivated Comments 08/10/2024 10:11 AM 08/10/2024 5:35 PM * Full Code Date Activated Date Inactivated Comments 06/16/2024 11:56 AM 06/16/2024 4:05 PM Care Teams [employer] Sales Rep Relationship Specialty Start Date End Date Kelly Baumann DO [address] [place] [address] PCP - General Family Medicine 03/24/24
--- OUTSIDE RECORDS SUMMARY | 2025-03-17 09:41 | XMS_ITS | Encounter Summary ---
Author Organization [facility] Address [address] [place] [address] Care Team Providers Care Net Applications Developer Name Role Phone Pastor Oro DO, Diana Primary Care Provider + Encounter Details Date Type Department Care Team (Late st Contact Info) Description 05/23/2024 Orders Only [facility] Building [address], 5th [place] [address] James Joseph MD [address] [place] [id number] Social History Tobacco Use Types Packs/Day Years Used Date Smoking Tobacco: Never Passive Smoke Exposure: Past Smokeless Tobacco: Never Comments:: Alcohol Use Standard Drinks/Week Comments Not Currently 0 (1 standard drink = 0.6 oz pur e alcohol) occasional [facility] Utilities Answer Date Recorded In the past 12 months has e electric, gas, oil, or water company threatened to shut off services in your home? No 04/13/2024 Hunger Vital Sign Answer Date Recorded Within the past 12 months, y ou worried that your food would run out before you got the money to buy more. Never true 04/13/20 24 Within the past 12 months, t he food you bought just didn't last and you didn't have money to get more. Never true 04/13/2024 Transportation Answer Date Recorded In the past 12 months, has l ack of reliable transportation kept you from medical appointments, meetings, work or from getting things needed for daily living? No 04/13/2024 Housing Answer Date Recorded Housing Risk Low 2 04/13/2024 Housing Risk Medium Not on file 04/13/2024 Housing Risk High Not on file 04/13/2024 What is your living situation today? LSSTEADY 04/13/2024 Comments No Sex and Gender Information Value [...] Description 06/07/2025 9:30 AM EDT Office Visit [facility] [address] [facility] Family Practice Department [address] [place] [address] Malini Godwin NP [address] [place] [address] 06/09/2025 2:30 PM EDT Follow-Up [facility] Nephrology [address] [address] Bipin Bobby MD [address] [place] [address] documented as of this encounter Visit Diagnoses Not on filedocumented in this encounter Care Teams Net Applications Developer Relationship Specialty Start Date End Date Kelly Baumann DO [address] [place] [address] PCP - General Family Medicine 03/24/24 documented as of this encounter
--- OUTSIDE RECORDS SUMMARY | 2025-03-17 09:41 | XMS_ITS | Clinical Summary ---
Author Organization [facility] Facility Address [address] [place] [address] Care Team Providers Care Cancer Registry Manager Name Role Phone Unavailable Primary Care Provider Unavailabl e Allergies Active Allergy Reactions Criticality Noted Date Comments Codeine Other (see comments) 02/25/2021 Medications azelastine (ASTELIN) 0.1 % nasal spray Administer 1 spray into each nostril 2 (two) times a day 1 Active levothyroxine (SYNTHROID, LEVOTHROID) 112 MCG tablet Take 1 tablet by mouth 1 (one) time each day Active linaCLOtide (Linzess) 145 MCG capsule Take 1 capsule by mouth 1 (one) time each day Active LORazepam (ATIVAN) 0.5 MG tablet Take 1 tablet by mouth Active metoprolol tartrate (LOPRESSOR) 25 MG tablet 1 (one) time each day in the morning 0 Active simvastatin (ZOCOR) 40 MG tablet TAKE 1 TABLET BY MOUTH EVERY DAY IN THE EVENING 1 Active amitriptyline (ELAVIL) 25 MG tablet TAKE 1 TABLET BY MOUTH EVERY DAY AT NIGHT 90 tablet 4 3 Active Active Problems Problem Noted Date Diagnosed Date Essential hypertension 02/25/2021 Immunizations Immunization Administration Dates Next Due Pneumococcal Conjugate 13-Valent 02/25/2016 Shingrix 05/24/2020 Family History Medical History Relation Comments Diabetes Mother Hypertension Mother Relation Status Comments Father Mother Social History Tobacco Use Types Packs/Day Years Used Date Smoking Tobacco: Never Smokeless Tobacco: Never Tobacco Cessation:Counseling Given: No Alcohol Use Standard Drinks/Week Comments No 0 (1 standard drink = 0.6 oz pur e alcohol) Comments Unknown Sex and Gender Information Value Date Recorded Sex Assigned at Not on file Legal Sex Female 4:39 PM EST Gender Identity Not on file Sexual Orientation Not on file Last Filed Vital Signs Vital Sign Reading Time Taken Comments Blood Pressure 112/76 02/27/2021 1:40 PM EDT Pulse 87 02/27/2021 1:40 PM EDT Temperature - - Respiratory Rate - - Oxygen Saturation 97% 02/27/2021 1:40 PM EDT Inhaled Oxygen Concentration - - Weight 61.2 kg (135 lb) 02/27/2021 1:40 PM EDT Height 152.4 cm (5') 08/29/2020 12:00 PM EDT Body Mass Index 26.37 08/29/2020 12:00 PM EDT Plan of Treatment Health Maintenance Due Date Last Done Comments Breast Cancer Screening 1955 Colorectal Cancer Screening: Annual FOBT 2003 Colorectal Cancer Screening: Colonoscopy 2003 Colorectal Cancer Screening: Sigmoidoscopy 2003 Pneumococcal Vaccine: 50+ Ye ars (2 of 2 - PPSV23) 02/24/2017 02/25/2016 Influenza Vaccine (Season Ended) 2025 Pneumococcal Vaccine: Peds ( 0 to 5 Years) and At-Risk Patients (6 to 49 Years) Discontinued 02/25/2016 Hepatitis B Vaccine Aged Out No longe r eligible based on patient's age to complete this [place] [address] [place] [address] [place] [address] Medicare
--- OUTSIDE RECORDS SUMMARY | 2025-03-17 09:41 | XMS_ITS | Referral Summary ---
Author Organization [facility] Address [address] [place] [address] Care Team Providers Care Curer Acid Drum Name Role Phone Pastor Oro DO, Diana Primary Care Provider + Encounters Date Type Department Care Team Description 02/28/2025 Orders Only [facility] - External Imaging [address] [place] [address] Radiology, External 02/21/2025 3:00 PM EDT Office Visit [facility] Nephrology [address] [address] Bipin Bobby MD Hyponatremia (Primary Dx) 02/19/[address] Family Practice Department [address] [place] [address] Kelly Baumann DO Hypercholesterolemia (Primary Dx) 02/16/[address] Family Practice Department [address] [place] [address] Talia Roque MA 02/14/[address] Family Practice Department [address] [place] [address] [phone] Kelly Baumann DO 02/08/2025 Results Follow-Up [address] Family Practice Department [address] [place] [address] Malini Godwin NP Results 02/05/2025 Results Follow-Up [address] Family Practice Department [address] [place] [address] Kelly Baumann V, DO Results 02/03/2025 11:42 AM EDT - 02/03/2025 11:59 PM EDT Hospital Encounter [facility] Xray Department [address] [place] [address] Left hip pain Discharge Disposition: Home or Self Care (01) 02/03/2025 11:42 AM EDT - 02/03/2025 11:59 PM EDT Hospital Encounter [facility] Xray Department [address] [place] [address] Left hip pain Discharge Disposition: Home or Self Care () 02/03/2025 10:30 AM EDT Office Visit [address] Family Practice Department [address] [place] [address] Malini Godwin NP Left hip pain (Primary Dx) 02/01/2025 9:31 AM EDT - 02/01/2025 11:59 PM EDT Hospital Encounter [facility] Ultrasound Department [address] [place] [address] Thyroid nodule Discharge Disposition: Home or Self Care (01) 01/18/[address] Family Practice Department [address] [place] [address] Kelly Baumann V, DO Results 01/17/2025 Results Follow-Up [address] Family Practice Department [address] [place] [address] Kelly Baumann V, DO 01/17/2025 Results Follow-Up [address] Family Practice Department [address] [place] [address] Malini Godwin NP 01/16/2025 10:04 AM EST - 01/16/2025 11:59 PM EST Hospital Encounter [facility] CT Scan Department [address] [place] [address] Dizziness; Disequilibrium Discharge Disposition: Home or Self Care () 01/16/2025 9:17 AM EST - 01/16/2025 10:03 AM EST Hospital Encounter [facility] Ultrasound Department [address] [place] [address] Kidney lesion Discharge Disposition: Home or Self Care () 01/15/2025 Results Follow-Up [address] Practice Department [address] [place] [address] Kelly Baumann V, DO Results 01/11/[address] Practice Department [address] [place] [address] Kelly Baumann V, DO 01/10/[address] Family Practice Department [address] [place] [address] Kelly Baumann V, DO order 01/07/[address] Practice Department [address] [place] [address] Malini Godwin NP Hypothyroidism, unspecified type 12/28/2024 myChart Message [address] Family Practice Department [address] [place] [address] Mychart, Generic Provider Follow-up from Last 3 Months Allergies Active Allergy Reactions Criticality Noted Date [...] 26.26 kg/m?? Statin: Zocor (simvastatin) Aspirin: no Firer Tunnel [place]n: No Last eye exam: 01/2024 Pneumococcal vaccine: Prenar 20 Plan: Continue on Metformin Suggested low cholesterol diet. Encouraged aerobic exercise. Discussed foot care. Reminded to get yearly retinal exam. Interstitial lung disease 04/13/2024 Assessment & Plan (04/13/2024 4:53 PM EDT): Pulmonary scaring. Follows with pulmonology Dr. Borrero through [facility]. Currently not on any inhalers. Other [...] diet and regular exercise. Essential hypertension 05/25/201404/13 Immunizations Immunization Administration Dates Next Due COVID-19, Moderna, mRNA, LNP -S, Bivalent Booster, PF 08/21/2022 Covid-19 Monovalent Vaccine, Moderna, mRNA, PF 04/17/2022,09/19/2021,02/16/2021,01/18 Covid-19, Moderna, mRNA, Vac cine, PF, 50 mcg/0.5 mL (for age 12 y and up) 08/29/2024,08/25/2023 Influenza, High Dose Seasona l, Preservative Free 08/29/2024,08/09/2019 Influenza, High Dose Seasona l, Quadrivalent PF 07/24/2021 Influenza, Injectable, Madin Aliyah Canine Kidney, Preservative Free, Quadrivalent 08/23/2018 Influenza, Injectable, Quadr ivalent Preservative Free 08/12/2023,08/21/2022 Influenza, Injectable, Quadr ivalent, Preservative Free 08/07/2017 Influenza, Quadrivalent, Rec ombinant, Injectable, PF 08/20/2020 Influenza, Trivalent, MDV, Injectable 08/11/2016 ,2011,08/12/2010 Pneumococcal Conjugate Vacci ne, 13 Valent 10/06/2019,02/25/2016 Pneumococcal Polysaccharide Vaccine, 23 Valent 09/06/2020 Pneumococcal conjugate PCV20,polysaccharide [id number] conjugate, adjuvant, PF (Prevnar 20) 02/18/2023 RSV vaccine, recombinant, pr otein subunit RSVpreF, adjuvant reconstituted, 0.5 mL, PF 08/12/2023 Tetanus Toxoid, Reduced Diph theria Toxoid, and Acellular Pertussis Vaccine, Adsorbed 10/09/2020 Zoster Vaccine Recombinant 05/24/2020,01/12/2020 Social History Tobacco Use Types Packs/Day Years Used Date Smoking Tobacco: Never Passive Smoke Exposure: Past Smokeless Tobacco: Never Tobacco Cessation:Counseling Given: Not Answered Alcohol Use Standard Drinks/Week Comments Not Currently 0 (1 standard drink = 0.6 oz pur e alcohol) occasional - onece a month [facility] Utilities Answer Date Recorded In the past 12 months has th e electric, gas, oil, or water company [...] Description 06/07/2025 9:30 AM EDT Office Visit [facility] 255 [facility] Family Practice Department [address] [place] [address] Malini Godwin NP [address] [place] [address] 06/09/2025 2:30 PM EDT Follow-Up [facility] Nephrology [address] [place] [address] Bipin Bobby MD [address] [place] [address] Medical Devices Implanted Type Area Emergency Room Physician Assistant Device Identifier Shelf Expiration Date Model / Serial / Lot Mesh Inguinal Light Left Medium 3.1inx5.3in 3dmax - [id number] Implanted:Qty: 1 on 08/10/2024 by Leonid Doe MD at [facility] Mesh Left: Groin [employer] 02/17/2027 [id number] / / [id number] Mesh Inguinal Light Right Medium 3.1inx5.3in 3dmax - [id number] Implanted:Qty: 1 on 08/10/2024 by Leonid Doe MD at [facility] Mesh Right: Groin [employer] 09/19/2028 [id number] / / [id number] Procedures * Due to [place] state law, this organization might not be [...] to Health Maintenance Results * Due to [place] state law, this organization might not be [...] obtain the completed interpretation. ? Workstation ID: [id number] Narrative 02/03/2025 6:53 PM EDT COMPARISON: There are no prior studies available for comparison at this time. Resulting Agency Comment [id number] Procedure Note Carmelo Cobos MD - 02/03/2025 [...] possible to obtain thecompleted interpretation. Workstation ID: [id number] us Malini Godwin YOGA INSTRUCTOR IMG XR PROCEDURES Final Result * XR Hip Left 2+ View W Pelvis (02/03/2025 12:02 PM EDT) Anatomical Region Laterality Modality Body, Pelvis, Hip Left Radiographic I maging 02/03/2025 6:50 PM EDT Impressions 02/03/2025 6:53 [...] obtain the completed interpretation. ? Workstation ID: [id number] Narrative 02/03/2025 6:53 PM EDT COMPARISON: There are no prior studies available for comparison at this time. Resulting Agency Comment [id number] Procedure Note Carmelo Cobos MD - 02/03/2025 [...] possible to obtain thecompleted interpretation. Workstation ID: [id number] us Malini Godwin NP IMG XR PROCEDURES [...] obtain the completed interpretation. ? Workstation ID: [id number] Narrative 02/01/2025 12:39 PM EDT EXAMINATION: ULTRASOUND [...] (2 points); Hyperechoic or isoechoic (1 point); Ixiff-vonc-utni shape (0 points); Smooth margins (0 points); [...] gland. No cervical lymphadenopathy. Resulting Agency Comment [id number] Procedure Note Kin Robledo MD - 02/01/2025 [...] Solid (2 points); Hyperechoic or isoechoic (1 point);Nlkwo-lhql-rcyb shape (0 points); Smooth margins (0 points); [...] possible to obtain thecompleted interpretation. Workstation ID: [id number] us Kelly Baumann V, DO IMG US PROCEDURES Final Result * MRI Cervical Spine without Contrast (01/23/2025 5:50 PM EST) Anatomical Region Laterality Modality Spine, C-spine Magnetic Resonan ce 01/23/2025 5:20 PM EST Narrative 01/25/2025 10:44 AM EST [facility], [facility] Accession Number: [id number] Patient Name: Kacy Alaniz Date of : 1955 Date of Exam: 01-23-2025 Referring Physician: Kelly Baumann ?[facility] ?[address] [facility] ?[place], [place] [address] Exam: MR Cervical Spine (C-) CPT 18250 Room Description: [facility] 1.5 MRI of the cervical spine [...] Jose Juan Franco MD Procedure Note Provider, Jaenne - 01/25/2025 [facility], [facility] Accession Number: [id number] Patient Name: Kacy Alaniz Date of : 1955 Date of Exam: 01-23-2025 Referring Physician: Kelly Baumann [address] [address] Exam: MR Cervical Spine (C-) CPT 21979 Room Description: [facility] 1.5 MRI of the cervical spine [...] Electronically Signed By: Jose Juan Franco MD us Kelly Baumann V, IMG MRI PROCEDURES Final Result * CT [...] the ordering or responsible provider via the [employer] system on 01/17/2025 3:10 PM. ??Receipt of this communication by the responsible provider will be documented in [employer] upon receiving acknowledgement if applicable, Message ID [id number]. If this radiology report contains a blank impression section, it is an incomplete radiology report. ??Please contact the interpreting radiologist or applicable radiology division as soon as possible to obtain the completed interpretation. ? Workstation ID: [id number] Up-to-date CT equipment and radiation dose reduction [...] Lung apices are clear. Resulting Agency Comment [id number] us Kelly Baumann V, IMG CT PROCEDURES Edited Result - Final [...] obtain the completed interpretation. ? Workstation ID: [id number] Narrative 01/16/2025 12:38 PM EST EXAMINATION: Ultrasound [...] stone in the bladder. Resulting Agency Comment [id number] Procedure Note González Rueda MD - 01/16/2025 [...] possible to obtain thecompleted interpretation. Workstation ID: [id number] us Malini Godwin NP IMG US PROCEDURES Final Result * (ABNORMAL) Basic metabolic panel (01/11/2025 9:15 AM EST) NA 130(L) 136 - 145 mmol/L 01/11/2025 3:17 PM EST [facility] K 4.4 3.5 - 5.1 mmol/L 01/11/2025 3:17 PM EST [facility] Cl 93(L) 98 - 109 mmol/L 01/11/2025 3:17 PM EST [facility] CO2 26 22 - 32 mmol/L 01/11/2025 3:17 PM EST [facility] BUN 10 8 - 23 mg/dL 01/11/2025 3:17 PM EST [facility] Creatinine 0.63 0.50 - 1.12 mg/dL 01/11/2025 3:17 PM EST [facility] Glucose 99 60 - 99 mg/dL 01/11/2025 3:17 PM EST [facility] Calcium 9.6 8.4 - 10.4 mg/dL 01/11/2025 3:17 PM EST [facility] Anion Gap 15 >=0 01/11/2025 3:17 PM EST [facility] eGFR >90 >=60 mL/min/1. 73m2 01/11/2025 3:17 PM EST [facility] Comment:The estimated glomer ular filtration rate (eGFR) is calculated using a new formula developed by the NKF-ASN task force to eliminate race-based correction factors. The new formula uses serum/plasma creatinine, age, and gender to determine eGFR. A value below 60mls/min might indicate kidney disease and will be flagged. For additional information, see Erlin et al, Am J Kidney Dis. 2021;79(2):268- 288, A Unifying Approach for GFR estimation: Recommendations of the NKF-ASN Task Force on Reassessing the Inclusion of Race in Diagnosing Kidney Disease . Blood Structure of peripheral vein / Unknown Venipuncture / Unknown 01/11/2025 9:15 AM EST 01/11/2025 12:54 PM EST us Kelly Baumann V, DO LAB BLOOD ORDERABLES Fin al Result [facility] [address] [address], [place] [phone] * Hepatitis C Antibody w/Reflex to HCV RNA, Quantitative PCR (12/05/2024 10:51 AM EST) Hepatitis C Antibody Interpretation Nonreactive Nonreactive 12/05/2024 4:26 PM EST [facility] Blood Structure of peripheral vein / Unknown Venipuncture / Unknown 12/05/2024 10:51 AM EST 12/05/2024 12:45 PM EST Kelly Oro DO LAB BLOOD ORDERABLES Fin al Result Performing Organization Address City/[facility]/ZIP Co de Phone Number [facility] [address] [place] [address], [place] [phone] * (ABNORMAL) Hemoglobin A1c (12/05/2024 10:51 AM EST) Hemoglobin A1c 6.0(H) 4.0 - 5.7 % 12/05/2024 2:18 PM EST [facility] Estimated Average Glucose 126 mg/dL 12/05/2024 2:18 PM EST [facility] Blood Structure of peripheral vein / Unknown Venipuncture / Unknown 12/05/2024 10:51 AM EST 12/05/2024 12:44 PM EST Malini Godwin YOGA INSTRUCTOR LAB BLOOD ORDERABL ES Final Result Performing Organization Address City/[facility]/ZIP Co de Phone Number [facility] [address] [address], [place] [phone] * COLONOSCOPY (06/16/2024) Narrative Procedure Note Meet Méndez MD - 06/16/2024 7:44 AM EDT Patient Name: Kacy Alaniz Procedure Date: 06/16/2024 [...] 0 Note Initiated On: 06/16/2024 7:44 AM us Meet Méndez MD PROVATION PROCEDURES Final Re sult * [facility] Right Add Views Digital Mammo and Terrence (06/06/2024 1:29 PM EDT) Anatomical Region Laterality Modality Breast Right Mammography Narrative 06/06/2024 1:38 PM EDT INDICATIONS Additional evaluation of right breast asymmetry. TECHNIQUE BRIAN Right Add Views Digital Mammo and Terrence. [...] as possible to obtain the completed interpretation. us Malini Godwin NP IMG BI PROCEDURES Final Result * Microalbumin / creatinine, urine ratio (Lab Collect) (04/19/2024 8:25 AM EDT) Creatinine, Urine 105 mg/dL 04/19/2024 3:03 PM EDT [facility] Microalbumin, Urine 4 <=20 mg/L 04/19/2024 3:03 PM EDT [facility] Microalb/Creat Ratio, Random Urine 3.8 1.3 - 30.0 mg/g 04/19/2024 3:03 PM EDT [facility] Urine Urine specimen collection, clean catch / Unknown Non-Blood Collection / Unknown 04/19/2024 8:25 AM EDT 04/19/2024 12:43 PM EDT Malini Godwin YOGA INSTRUCTOR LAB URINE ORDERABL ES Final Result [facility] [address] [place] [address] [address] [place] [address], [place] [phone] from Last 3 Months or Most Recently Relevant to Health Maintenance Insurance MEDICARE [facility] MEDICARE [facility] Advance Directives * Presumed Full Code (Latest Code Status on File) Date Activated Date Inactivated Comments 08/10/2024 10:11 AM 08/10/2024 5:35 PM * Full Code Date Activated Date Inactivated Comments 06/16/2024 11:56 AM 06/16/2024 4:05 PM Care Teams Curer Acid Drum Relationship Specialty Start Date End Date Kelly Baumann DO [address] [place] [address] PCP - General Family Medicine 03/24/24
--- NOTE | 2025-03-17 10:05 | HO.SPINEOV ---
Vital Signs 03/17/25 10:06 Height 4 ft 10 in Weight 110 lb BMI 23.0 Intake Visit Reasons: Cervical and Spine concerns Intake Note: Mrs. Alaniz is here today c/o neck and back pain. Landscape Engineer Required: No Physical Exam Vital Signs: BMI result Body Mass Index 23.0 Assessment & Plan Assessment & Plan (1) Cervical disc disorder: Code(s): M50.90 - Cervical disc disorder, unspecified, unspecified cervical region Category: Medical Plan Dear Dr Baumann, This is a very nice 69 year old female who came into the office today for a consult for her spinal problems. The 1st issue she has had for many years his neck pain. She has a history of osteoarthritis and for the most part she has just dealt with this using rlrs-yyu-jiorqql therapies such as Tylenol and anti-inflammatories. Her pain is mostly on the right side. She does not report any pain radiating down the arms but she has had progressive weakness in her hands. Specifically trouble opening jars. She always attributed this to the arthritis in her hands and aging. She also reports issues with balance. She did have some vertigo recently and underwent some therapies with the inner ear crystals and that seemed to help the dizziness but she is still remains slightly unsteady with walking reports feelings of weakness in her left leg when trying to go up stairs. Second issue is she has a diffuse back pain which will at times give her associated left hip pain and occasionally will radiate further down the left leg. She comes in today with an MRI of her cervical spine done at [facility] in January of this year as well as a report of his CT scan done at [facility] of her neck. To this point she has had no dedicated conservative treatment for her neck or her back. PMH: She is reasonably healthy, she is a diabetic but A1c is very well controlled on metformin, history of hypothyroidism, tonsillectomy, she recently had laparoscopic hernia repaired [facility] which went well. History of high cholesterol. Denies any history of heart attack, strokes, pulmonary, liver, kidney disease, major abdominal surgery, bleeding or blood clots. Social hx: She does not smoke, drink use any recreational drugs Medications: Metformin, vitamin-D, Linzess, simvastatin, levothyroxine, lorazepam, low-dose baby aspirin and multivitamin Allergies: Codeine Physical exam: Awake alert oriented no acute distress, she has some pain with standing up straight which makes her slow getting out of a chair. She is able to walk down the hallway with normal gait, but when I ask her to do tandem gait walking, she is very unsteady. She had hold onto the wall just to take a step or 2. Motor examination reveals some mild weakness of her hands which I would rate as 4/5. Some left iliopsoas weakness as well which I would rate as 4-5. Rest of her motor examination is normal. She is hyperreflexic in both the upper and lower extremities with clonus in both ankles and Lemus's sign in the right hand. Imaging review: Cervical MRI done at [facility], shows that she has severe collapse of the disc space at C4-5 and C5-6 with retrolisthesis of C4 causing indentation and compression of the spinal cord. No T2 cord signal changes seen. Impression: 69-year-old female with history of chronic neck pain and some myelopathic symptoms with physical exam findings concerning for myelopathy. I showed her her imaging, I am concerned about the compression at C4-5. I am going to review the case with Dr. Carver but I think this should be fixed surgically. Typically Dr. Carver would do this with anterior cervical fusion. I believe he would address not only the C4-5 where there spinal cord compression, but also the C5-6 degenerative disc because the patient has chronic neck pain might indicate that is an issue as well. She did have a CAT scan done at [place] which I would like to review just to ensure that the areas not already auto fused. I will obtain flexion-extension x-rays as well. Once we address her neck issues, I will focus on the lumbar spine where I suspect she was very similar findings. We did briefly discuss the procedure anterior cervical diskectomy and fusion, risks, benefits etc.. I will call her once I have the x-rays and CTs and never reviewed everything with Dr. Carver. Thank you for allowing us to care for your patient. The total time spent with this visit with this patient was 45 minutes reviewing history, physical exam, lumbar imaging review, and implementation of treatment plan or further diagnostic testing Mike Carver MD,PhD [facility] Orders: Orders XR cervical spine 4V Today M50.90 - Cervical disc disorder, unspecified, unspecified cervical region Coding Level of Care Code New Pt Level 4 (29073) Diagnoses Cervical disc disorder M50.90
[2025-03-17 10:06] VITALS: BMI 23.0
== END 2025-03-17 10:51 | disposition home or self-care (01) ==
LOC: HO.HNS 09:29
PROVIDERS: PCP Family Medicine; Visit Provider Physician Assistant
DX: M50.90 Cervical disc disorder, unspecified, unspecified cervical region (principal)
CPT/HCPCS: 99204

== ENCOUNTER 2025-03-17 09:28 | Outpatient (REF) | payer MEDICARE, OTHER, SELFPAY ==
--- NOTE | ~2025-03-17 | XR_ITS ---
EXAMINATION: XR CERVICAL SPINE CLINICAL INFORMATION: M50.90 - Cervical disc disorder, unspecified, unspecified cervical region COMPARISON: None available. TECHNIQUE: 5 views of the cervical spine, inclusive of flexion and extension views, were obtained. FINDINGS: Mild reversal of the normal lordosis centered at C4. No scoliosis. No fracture, compression deformity, or suspicious bone lesion. C1-2 articulation and craniocervical junction are intact and aligned. Severe disc degeneration is present C3-C7. There is multilevel degenerative facet change bilaterally. There is a 2 mm degenerative anterolisthesis of C3 on C4, a 3 mm retrolisthesis of C4 on C5, and a 2 mm retrolisthesis of C5 on C6.. In flexion, there is no change in these subtle subluxations. In extension, the C3-4 subtle anterolisthesis results neutral. There is no evidence of instability. The pre and paravertebral soft tissues are normal. The lung apices are clear. XR/XR cervical spine 4V IMPRESSION: 1. No acute bony abnormalities. 2. Moderate to severe cervical spondylosis as discussed. No evidence of instability on flexion and extension views. Electronically signed by: Carmelo Mojica MD 03/20/2025 02:54 PM EDT
--- OUTSIDE RECORDS SUMMARY | 2025-03-17 10:46 | XMS_ITS | Clinical Summary ---
Author Organization [facility] Address [address] [place] [address] Care Team Providers Care Abstract Writer Name Role Phone Pastor Oro DO, Diana [...] 26.26 kg/m?? Statin: Zocor (simvastatin) Aspirin: no Grinder Operator: No Last eye exam: 01/2024 Pneumococcal vaccine: Prenar 20 Plan: Continue on Metformin Suggested low cholesterol diet. Encouraged aerobic exercise. Discussed foot care. Reminded to get yearly retinal exam. Interstitial lung disease 04/13/2024 Assessment & Plan (04/13/2024 4:53 PM EDT): Pulmonary scaring. Follows with pulmonology Dr. Borrero through [facility]. Currently not on any inhalers. Other irritable [...] Department Care Team Description 02/28/2025 Orders Only [facility] - External Imaging [address] [facility] [address] Radiology, External 02/21/2025 3:00 PM EDT Office Visit [facility] Nephrology 100 [facility] [address] [place] [address] Bipin Bobby MD Hyponatremia (Primary Dx) 02/19/[address] Family Practice Department [address] [place] [address] Kelly Baumann DO Hypercholesterolemia (Primary Dx) 02/16/[address] Practice Department [address] [place] [address] Talia Roque, JAY JAY 02/14/[address] Department [address] [place] [address] Kelly Baumann V, DO 02/08/2025 Results Follow-Up [address] Department [address] [place] [address] Malini Godwin, MARIBELL Results 02/05/2025 Results Follow-Up [address] [address] Kelly Baumann V, DO Results 02/03/2025 11:42 AM EDT - 02/03/2025 11:59 PM EDT Hospital Encounter [facility] Xray Department [address] [place] [address] Left hip pain Discharge Disposition: Home or Self Care () 02/03/2025 11:42 AM EDT - 02/03/2025 11:59 PM EDT Hospital Encounter [facility] Xray Department [address] [place] [address] Left hip pain Discharge Disposition: Home or Self Care () 02/03/2025 10:30 AM EDT Office Visit [address] [address] Malini Godwin, INCOME AUDITOR Left hip pain (Primary Dx) 02/01/2025 9:31 AM EDT - 02/01/2025 11:59 PM EDT Hospital Encounter [facility] Ultrasound Department [address] [place] [address] Thyroid nodule Discharge Disposition: Home or Self Care () 01/18/[address] Practice Department [address] [place] [address] Immenhausen, Kelly V, DO Results 01/17/2025 Results Follow-Up [address] Practice Department [address] [place] [address] Immenhausen, Kelly V, DO 01/17/2025 Results Follow-Up [address] [address] Malini Godwin, MARIBELL 01/16/2025 10:04 AM EST - 01/16/2025 11:59 PM EST Hospital Encounter [facility] CT Scan Department [address] [place] [address] Dizziness; Disequilibrium Discharge Disposition: Home or Self Care () 01/16/2025 9:17 AM EST - 01/16/2025 10:03 AM EST Hospital Encounter [facility] Ultrasound Department [address] [place] [address] Kidney lesion Discharge Disposition: Home or Self Care () 01/15/2025 Results Follow-Up [address] Practice Department [address] [place] [address] Immenhausen, Kelly V, DO Results 01/11/[address] Practice Department [address] [place] [address] Immenhausen, Kelly V, DO 01/10/[address] Family Practice Department [address] [place] [address] Kelly Baumann V, DO order 01/07/[address] Department [address] [place] [address] Malini Godwin, INCOME AUDITOR Hypothyroidism, unspecified type 12/28/2024 myChart Message [facility] 255 [facility] Department [address] [place] [address] Mychart, Generic Provider Follow-up from Last 3 [...] l, Quadrivalent PF 07/24/2021 Influenza, Injectable, Madin Downey Canine Kidney, Preservative Free, Quadrivalent 08/23/2018 Influenza, Injectable, Quadr ivalent Preservative Free 08/12/2023,08/21/2022 Influenza, Injectable, Quadr ivalent, Preservative Free 08/07/2017 Influenza, Quadrivalent, Rec ombinant, Injectable, PF 08/20/2020 Influenza, Trivalent, MDV, Injectable 08/11/2016 ,2011,08/12/2010 Pneumococcal Conjugate Vacci ne, 13 Valent 10/06/2019,02/25/2016 Pneumococcal Polysaccharide Vaccine, 23 Valent 09/06/2020 Pneumococcal conjugate PCV20,polysaccharide [id number] conjugate, adjuvant, PF (Prevnar 20) 02/18/2023 RSV [...] e alcohol) occasional - onece a month [facility] Utilities Answer Date Recorded In the past 12 months has th e [employer], gas, oil, or water [employer] threatened to shut off services in your [...] Description 06/07/2025 9:30 AM EDT Office Visit [facility] 255 [facility] Family Practice Department [address] [place] [address] Malini Godwin NP [address] [place] [address] 06/09/2025 2:30 PM EDT Follow-Up [facility] Nephrology 100 [facility] [address] [place] [address] Bipin Bobby MD [address] [place] [address] Health Maintenance Due Date Last Done Comments [...] this topic Medical Devices Implanted Type Area Consumer Loan Officer Device Identifier Shelf Expiration Date Model / Serial / Lot Mesh Inguinal Light Left Medium 3.1inx5.3in 3dmax - [id number] Implanted:Qty: 1 on 08/10/2024 by Leonid Doe MD at [facility] Mesh Left: Groin [employer] 02/17/2027 [id number] / / [id number] Mesh Inguinal Light Right Medium 3.1inx5.3in 3dmax - [id number] Implanted:Qty: 1 on 08/10/2024 by Leonid Doe MD at [facility] Mesh Right: Groin [employer] 09/19/2028 [id number] / / [id number] Procedures * Due to [place] state law, this organization might not be [...] to Health Maintenance Results * Due to [place] state law, this organization might not be [...] obtain the completed interpretation. ? Workstation ID: [id number] Narrative 02/03/2025 6:53 PM EDT COMPARISON: There are no prior studies available for comparison at this time. Resulting Agency Comment [id number] Procedure Note Carmelo Cobos MD - 02/03/2025 [...] possible to obtain thecompleted interpretation. Workstation ID: [id number] us Malini Godwin INCOME AUDITOR IMG XR PROCEDURES Final Result * XR [...] obtain the completed interpretation. ? Workstation ID: [id number] Narrative 02/03/2025 6:53 PM EDT COMPARISON: There are no prior studies available for comparison at this time. Resulting Agency Comment [id number] Procedure Note Carmelo Cobos MD - 02/03/2025 [...] possible to obtain thecompleted interpretation. Workstation ID: [id number] us Malini Godwin NP IMG XR PROCEDURES [...] obtain the completed interpretation. ? Workstation ID: [id number] Narrative 02/01/2025 12:39 PM EDT EXAMINATION: ULTRASOUND [...] (2 points); Hyperechoic or isoechoic (1 point); Ofefg-zqsr-uryi shape (0 points); Smooth margins (0 points); [...] gland. No cervical lymphadenopathy. Resulting Agency Comment [id number] Procedure Note Kin Robledo MD - 02/01/2025 [...] Solid (2 points); Hyperechoic or isoechoic (1 point);Zaibe-iuym-eaft shape (0 points); Smooth margins (0 points); [...] possible to obtain thecompleted interpretation. Workstation ID: [id number] us Kelly Oro DO IMG US PROCEDURES Final Result * MRI Cervical Spine without Contrast (01/23/2025 5:50 PM EST) Anatomical Region Laterality Modality Spine, C-spine Magnetic Resonan ce 01/23/2025 5:20 PM EST Narrative 01/25/2025 10:44 AM EST [facility], [facility] Accession Number: [id number] Patient Name: Kacy Alaniz Date of : 1955 Date of Exam: 01-23-2025 Referring Physician: Kelyl Baumann ?[facility] ?[address] [facility] ?[place] [address] Exam: MR Cervical Spine (C-) CPT 61645 Room Description: [facility] 1.5 MRI of the cervical spine without [...] MD Procedure Note Provider, Jeanne - 01/25/2025 [place] [facility], [facility] Accession Number: [id number] Patient Name: Kacy Alaniz Date of : 1955 Date of Exam: 01-23-2025 Referring Physician: Kelly Baumann [address] [address] Exam: MR Cervical Spine (C-) CPT 89094 Room Description: [facility] 1.5 MRI of the cervical spine without [...] the ordering or responsible provider via the Ja[employer] Findings system on 01/17/2025 3:10 PM. ??Receipt of this communication by the responsible provider will be documented in Ja[employer] Findings upon receiving acknowledgement if applicable, Message ID [id number]. If this radiology report contains a blank impression section, it is an incomplete radiology report. ??Please contact the interpreting radiologist or applicable radiology division as soon as possible to obtain the completed interpretation. ? Workstation ID: [id number] Up-to-date CT equipment and radiation dose reduction [...] Lung apices are clear. Resulting Agency Comment [id number] us Kelly Baumann V, DO IMG CT [...] obtain the completed interpretation. ? Workstation ID: [id number] Narrative 01/16/2025 12:38 PM EST EXAMINATION: Ultrasound [...] stone in the bladder. Resulting Agency Comment [id number] Procedure Note González Rueda MD - 01/16/2025 [...] possible to obtain thecompleted interpretation. Workstation ID: [id number] us Malini Godwin NP IMG US PROCEDURES Final Result * (ABNORMAL) Basic metabolic panel (01/11/2025 9:15 AM EST) NA 130(L) 136 - 145 mmol/L 01/11/2025 3:17 PM EST [facility] K 4.4 3.5 - 5.1 mmol/L 01/11/2025 3:17 PM EST [facility] Cl 93(L) 98 - 109 mmol/L 01/11/2025 3:17 PM EST [facility] CO2 26 22 - 32 mmol/L 01/11/2025 3:17 PM EST [facility] BUN 10 8 - 23 mg/dL 01/11/2025 3:17 PM EST [facility] Creatinine 0.63 0.50 - 1.12 mg/dL 01/11/2025 3:17 PM EST [facility] Glucose 99 60 - 99 mg/dL 01/11/2025 3:17 PM EST [facility] Calcium 9.6 8.4 - 10.4 mg/dL 01/11/2025 3:17 PM EST [facility] Anion Gap 15 >=0 01/11/2025 3:17 PM EST [facility] eGFR >90 >=60 mL/min/1. 73m2 01/11/2025 3:17 PM EST [facility] Comment:The estimated glomer ular filtration [...] DO LAB BLOOD ORDERABLES Fin al Result [facility] [address] [place] [address], [place] [phone] * Hepatitis C Antibody w/Reflex to HCV RNA, Quantitative PCR (12/05/2024 10:51 AM EST) Pathologist [facility] Hepatitis C Antibody Interpretation Nonreactive Nonreactive 12/05/2024 4:26 PM EST [facility] Blood Structure of peripheral vein / Unknown Venipuncture / Unknown 12/05/2024 10:51 AM EST 12/05/2024 12:45 PM EST Kelly Baumann V, DO LAB BLOOD ORDERABLES Fin al Result [facility] [address] [place] [address], * (ABNORMAL) Hemoglobin A1c (12/05/2024 10:51 AM EST) Pathologist [facility] Hemoglobin A1c 6.0(H) 4.0 - 5.7 % 12/05/2024 2:18 PM EST [facility] Estimated Average Glucose 126 mg/dL 12/05/2024 2:18 PM EST [facility] Blood Structure of peripheral vein / Unknown Venipuncture / Unknown 12/05/2024 10:51 AM EST 12/05/2024 12:44 PM EST Malini Godwin INCOME AUDITOR LAB BLOOD ORDERABL ES Final Result [facility] [address] [place] [address], [place] [phone] * COLONOSCOPY (06/16/2024) Narrative Procedure Note Meet Méndez MD - 06/16/2024 7:44 AM EDT [facility] Patient Name: Kacy Alaniz Procedure Date: 06/16/2024 [...] MD PROVATION PROCEDURES Final Re sult * [facility] Right Add Views Digital Mammo and Terrence (06/06/2024 1:29 PM EDT) Anatomical Region Laterality Modality Breast Right Mammography Narrative 06/06/2024 1:38 PM EDT INDICATIONS Additional evaluation of right breast asymmetry. TECHNIQUE [facility] Right Add Views Digital Mammo and Terrence. [...] Urine 105 mg/dL 04/19/2024 3:03 PM EDT [facility] Microalbumin, Urine 4 <=20 mg/L 04/19/2024 3:03 PM EDT [facility] Microalb/Creat Ratio, Random Urine 3.8 1.3 - 30.0 mg/g 04/19/2024 3:03 PM EDT [facility] Urine Urine specimen collection, clean catch / Unknown Non-Blood Collection / Unknown 04/19/2024 8:25 AM EDT 04/19/2024 12:43 PM EDT us Malini Godwin INCOME AUDITOR LAB URINE ORDERABL ES Final Result [facility] [address] [place] [address], [place] [phone] from Last 3 Months or Most Recently Relevant to Health Maintenance Insurance MEDICARE [facility] MEDICARE [facility] Advance Directives * Presumed Full Code (Latest Code Status on File) Date Activated Date Inactivated Comments 08/10/2024 10:11 AM 08/10/2024 5:35 PM * Full Code Date Activated Date Inactivated Comments 06/16/2024 11:56 AM 06/16/2024 4:05 PM Care Teams Abstract Writer Relationship Specialty Start Date End Date Kelly Baumann DO [address] [place] [address] PCP - General Family Medicine 03/24/24
--- OUTSIDE RECORDS SUMMARY | 2025-03-17 10:46 | XMS_ITS | Encounter Summary ---
Author Organization [facility] Address [address] [place] [address] Care Team Providers Care Public Relations Assistant Name Role Phone Pastor Oro DO, Diana Primary Care Provider + Encounter Details Date Type Department Care Team (Late st Contact Info) Description 05/23/2024 Orders Only [facility] Building [address], [address] [place] [address] James Joseph MD [address] [place] [phone] Social History Tobacco Use Types Packs/Day Years Used Date Smoking Tobacco: Never Passive Smoke Exposure: Past Smokeless Tobacco: Never Comments:: Alcohol Use Standard Drinks/Week Comments Not Currently 0 (1 standard drink = 0.6 oz pur e alcohol) occasional [facility] Utilities Answer Date Recorded In the [...] Description 06/07/2025 9:30 AM EDT Office Visit [facility] 255 [facility] Family Practice Department [address] [place] [address] Malini Godwin NP [address] [place] [address] 06/09/2025 2:30 PM EDT Follow-Up [facility] Nephrology [address] [address] Bipin Bobby MD [address] [place] [address] documented as of this encounter Visit Diagnoses Not on filedocumented in this encounter Care Teams Public Relations Assistant Relationship Specialty Start Date End Date Kelly Baumann DO [address] [place] [address] PCP - General Family Medicine 03/24/24 documented as of this encounter
--- OUTSIDE RECORDS SUMMARY | 2025-03-17 10:46 | XMS_ITS | Encounter Summary ---
Author Organization [facility] Address [address] [place] [address] Care Team Providers Care Automobile Service Advisor Name Role Phone Pastor Oro DO, Diana Primary Care Provider + Encounter Details Date Type Department Care Team (Late st Contact Info) Description 12/05/2024 Orders Only [facility] CT Scan [address] [place], [place] [phone] Michelle Gonzales MD [address] [place], [place] [phone] Social History Tobacco Use Types Packs/Day Years Used Date Smoking Tobacco: Never Passive Smoke Exposure: Past Smokeless Tobacco: Never Alcohol Use Standard Drinks/Week Comments Not Currently 0 (1 standard drink = 0.6 oz pur e alcohol) occasional - onece a month [facility] Utilities Answer Date Recorded In the past 12 months has e electric, gas, oil, or water [employer] threatened to shut off services in your [...] Description 06/07/2025 9:30 AM EDT Office Visit [facility] 255 [facility] Family Practice Department [address] [place] [address] Malini Godwin NP [address] [place] [address] 06/09/2025 2:30 PM EDT Follow-Up [facility] Nephrology [address] [facility] [address] [place] [address] Bipin Bobby MD [address] [place] [address] documented as of this encounter Visit Diagnoses Not on filedocumented in this encounter Care Teams Automobile Service Advisor Relationship Specialty Start Date End Date Kelly Baumann DO [address] [place] [address] PCP - General Family Medicine 03/24/24 documented as of this encounter
--- OUTSIDE RECORDS SUMMARY | 2025-03-17 10:46 | XMS_ITS | Clinical Summary ---
Author Organization [facility] Facility Address [address] [place] [address] Care Team Providers Care Adoption Social Worker Name Role Phone Unavailable Primary Care Provider [...] patient's age to complete this topic [place] [address] [place] [address] Medicare
--- OUTSIDE RECORDS SUMMARY | 2025-03-17 10:46 | XMS_ITS | Referral Summary ---
Author Organization [facility] Address [address] [place] [address] Care Team Providers Care Head Doffer Name Role Phone Pastor Oro DO, Diana Primary Care Provider + Encounters Date Type Department Care Team Description 02/28/2025 Orders Only [facility] - External Imaging [address] [place] [address] Radiology, External 02/21/2025 3:00 PM EDT Office Visit [facility] Nephrology [address] [address] Bipin Bobby MD Hyponatremia (Primary Dx) 02/19/[address] Family Practice Department [address] [place] [phone] Kelly Baumann DO Hypercholesterolemia (Primary Dx) 02/16/[address] Family Practice Department [address] [place] [phone] Talia Roque MA 02/14/[address] Family Practice Department [address] [place] [address] [phone] Kelly Baumann DO 02/08/2025 Results Follow-Up [address] Family Practice Department [address] [place] [phone] Malini Godwin NP Results 02/05/2025 Results Follow-Up [address] Family Practice Department [address] [place] [phone] Kelly Baumann V, DO Results 02/03/2025 11:42 AM EDT - 02/03/2025 11:59 PM EDT Hospital Encounter [facility] Xray Department [address] [place] [address] Left hip pain Discharge Disposition: Home or Self Care (01) 02/03/2025 11:42 AM EDT - 02/03/2025 11:59 PM EDT Hospital Encounter [facility] Xray Department [address] [place] [address] Left hip pain Discharge Disposition: Home or Self Care () 02/03/2025 10:30 AM EDT Office Visit [address] Family Practice Department [address] [place] [phone] Malini Godwin NP Left hip pain (Primary Dx) 02/01/2025 9:31 AM EDT - 02/01/2025 11:59 PM EDT Hospital Encounter [facility] Ultrasound Department [address] [place] [address] Thyroid nodule Discharge Disposition: Home or Self Care (01) 01/18/[address] Family Practice Department [address] [place] [phone] Kelly Baumann V, DO Results 01/17/2025 Results Follow-Up [address] Family Practice Department [address] [place] [phone] Kelly Baumann V, DO 01/17/2025 Results Follow-Up [address] Family Practice Department [address] [place] [address] 105[address] Malini Godwin NP 01/16/2025 10:04 AM EST - 01/16/2025 11:59 PM EST Hospital Encounter [facility] CT Scan Department [address] [place] [address] Dizziness; Disequilibrium Discharge Disposition: Home or Self Care () 01/16/2025 9:17 AM EST - 01/16/2025 10:03 AM EST Hospital Encounter [facility] Ultrasound Department [address] [place] [address] Kidney lesion Discharge Disposition: Home or Self Care () 01/15/2025 Results Follow-Up [address] Practice Department [address] [place] [phone] Kelly Baumann V, DO Results 01/11/[address] Practice Department [address] [place] [phone] Kelly Baumann V, DO 01/10/[address] Family Practice Department [address] [place] [phone] Kelly Baumann V, DO order 01/07/[address] Practice Department [address] [place] [address] 94[address] Malini Godwin NP Hypothyroidism, unspecified type 12/28/2024 myChart Message [address] Family Practice Department [address] [place] [address] Mychart, Generic Provider Follow-up from Last 3 [...] 26.26 kg/m?? Statin: Zocor (simvastatin) Aspirin: no Appeals Reviewer Veteran: No Last eye exam: 01/2024 Pneumococcal vaccine: Prenar 20 Plan: Continue on Metformin Suggested low cholesterol diet. Encouraged aerobic exercise. Discussed foot care. Reminded to get yearly retinal exam. Interstitial lung disease 04/13/2024 Assessment & Plan (04/13/2024 4:53 PM EDT): Pulmonary scaring. Follows with pulmonology Dr. Borrero through [facility]. Currently not on any inhalers. Other [...] Vaccine, 23 Valent 09/06/2020 Pneumococcal conjugate PCV20,polysaccharide KMZ207 conjugate, adjuvant, PF (Prevnar 20) 02/18/2023 RSV [...] e alcohol) occasional - onece a month [facility] Utilities Answer Date Recorded In the [...] Description 06/07/2025 9:30 AM EDT Office Visit [facility] [address] [facility] Family Practice Department [address] [place] [phone] Malini Godwin NP [address] [place] [address] 06/09/2025 2:30 PM EDT Follow-Up [facility] Nephrology [address] [place] [address] Bipin Bobby MD [address] [place] [id number] Medical Devices Implanted Type Area Commercial [employer] Associate Device Identifier Shelf Expiration Date Model / Serial / Lot Mesh Inguinal Light Left Medium 3.1inx5.3in 3dmax - [id number] Implanted:Qty: 1 on 08/10/2024 by Leonid Doe MD at [facility] Mesh Left: Groin [employer] 02/17/2027 [id number] / / [id number] Mesh Inguinal Light Right Medium 3.1inx5.3in 3dmax - [id number] Implanted:Qty: 1 on 08/10/2024 by Leonid Doe MD at [facility] Mesh Right: Groin [employer] 09/19/2028 [id number] / / [id number] Procedures * Due to [place] state law, this organization might not be [...] to Health Maintenance Results * Due to [place] state law, this organization might not be [...] obtain the completed interpretation. ? Workstation ID: [id number] Narrative 02/03/2025 6:53 PM EDT COMPARISON: There are no prior studies available for comparison at this time. Resulting Agency Comment [id number] Procedure Note Carmelo Cobos MD - 02/03/2025 [...] possible to obtain thecompleted interpretation. Workstation ID: [id number] us Malini Godwin [facility] IMG XR PROCEDURES Final Result * XR [...] obtain the completed interpretation. ? Workstation ID: [id number] Narrative 02/03/2025 6:53 PM EDT COMPARISON: There are no prior studies available for comparison at this time. Resulting Agency Comment [id number] Procedure Note Carmelo Cobos MD - 02/03/2025 [...] possible to obtain thecompleted interpretation. Workstation ID: [id number] us Malini Godwin NP IMG XR PROCEDURES [...] obtain the completed interpretation. ? Workstation ID: [id number] Narrative 02/01/2025 12:39 PM EDT EXAMINATION: ULTRASOUND [...] (2 points); Hyperechoic or isoechoic (1 point); Lhwki-afhg-khzs shape (0 points); Smooth margins (0 points); [...] gland. No cervical lymphadenopathy. Resulting Agency Comment [id number] Procedure Note Kin Robledo MD - 02/01/2025 [...] Solid (2 points); Hyperechoic or isoechoic (1 point);Vvrrk-veay-nbeb shape (0 points); Smooth margins (0 points); [...] possible to obtain thecompleted interpretation. Workstation ID: [id number] us Kelly Baumann V, DO IMG US PROCEDURES Final Result * MRI Cervical Spine without Contrast (01/23/2025 5:50 PM EST) Anatomical Region Laterality Modality Spine, C-spine Magnetic Resonan ce 01/23/2025 5:20 PM EST Narrative 01/25/2025 10:44 AM EST [facility] at [facility], [facility] Accession Number: [id number] Patient Name: Kacy Alaniz Date of : 1955 Date of Exam: 01-23-2025 Referring Physician: Kelly Baumann ?[facility] ?[address] [facility] ?[place], [place] [address] Exam: MR Cervical Spine (C-) CPT 43094 Room Description: [facility] 1.5 MRI of the cervical [...] MD Procedure Note Provider, Jeanne - 01/25/2025 [place] [facility] at [facility], [facility] Accession Number: [id number] Patient Name: Kacy Alaniz Date of : 1955 Date of Exam: 01-23-2025 Referring Physician: Kelly Baumann [address] [address] Exam: MR Cervical Spine (C-) CPT 20430 Room Description: [facility] 1.5 MRI of the cervical [...] the ordering or responsible provider via the [employer] system on 01/17/2025 3:10 PM. ??Receipt of this communication by the responsible provider will be documented in [employer] upon receiving acknowledgement if applicable, Message ID [id number]. If this radiology report contains a blank impression section, it is an incomplete radiology report. ??Please contact the interpreting radiologist or applicable radiology division as soon as possible to obtain the completed interpretation. ? Workstation ID: [id number] Up-to-date CT equipment and radiation dose reduction [...] Lung apices are clear. Resulting Agency Comment [id number] us Kelly Baumann V, IMG CT PROCEDURES [...] obtain the completed interpretation. ? Workstation ID: [id number] Narrative 01/16/2025 12:38 PM EST EXAMINATION: Ultrasound [...] stone in the bladder. Resulting Agency Comment [id number] Procedure Note González Rueda MD - 01/16/2025 [...] possible to obtain thecompleted interpretation. Workstation ID: [id number] us Malini Godwin NP IMG US PROCEDURES Final Result * (ABNORMAL) Basic metabolic panel (01/11/2025 9:15 AM EST) NA 130(L) 136 - 145 mmol/L 01/11/2025 3:17 PM EST [facility] K 4.4 3.5 - 5.1 mmol/L 01/11/2025 3:17 PM EST [facility] Cl 93(L) 98 - 109 mmol/L 01/11/2025 3:17 PM EST [facility] CO2 26 22 - 32 mmol/L 01/11/2025 3:17 PM EST [facility] BUN 10 8 - 23 mg/dL 01/11/2025 3:17 PM EST [facility] Creatinine 0.63 0.50 - 1.12 mg/dL 01/11/2025 3:17 PM EST [facility] Glucose 99 60 - 99 mg/dL 01/11/2025 3:17 PM EST [facility] Calcium 9.6 8.4 - 10.4 mg/dL 01/11/2025 3:17 PM EST [facility] Anion Gap 15 >=0 01/11/2025 3:17 PM EST [facility] eGFR >90 >=60 mL/min/1. 73m2 01/11/2025 3:17 PM EST [facility] Comment:The estimated glomer ular filtration [...] DO LAB BLOOD ORDERABLES Fin al Result [facility] [address] [address], [place] [phone] * Hepatitis C Antibody w/Reflex to HCV RNA, Quantitative PCR (12/05/2024 10:51 AM EST) Hepatitis C Antibody Interpretation Nonreactive Nonreactive 12/05/2024 4:[address] [facility] Blood Structure of peripheral vein / Unknown Venipuncture / Unknown 12/05/2024 10:51 AM EST 12/05/2024 12:45 PM EST Kelly Oro DO LAB BLOOD ORDERABLES Fin al Result Performing Organization Address City/[facility]/ZIP Co de Phone Number [facility] [address] [place] [address], [place] [phone] * (ABNORMAL) Hemoglobin A1c (12/05/2024 10:51 AM EST) Hemoglobin A1c 6.0(H) 4.0 - 5.7 % 12/05/2024 2:18 PM EST [facility] Estimated Average Glucose 126 mg/dL 12/05/2024 2:18 PM EST [facility] Blood Structure of peripheral vein / Unknown Venipuncture / Unknown 12/05/2024 10:51 AM EST 12/05/2024 12:44 PM EST Maliin Godwin [facility] LAB BLOOD ORDERABL ES Final Result Performing Organization Address City/[facility]/ZIP Co de Phone Number [facility] [address] [address], [place] [phone] * COLONOSCOPY (06/16/2024) Narrative Procedure Note Meet Méndez MD - 06/16/2024 7:44 AM EDT [facility] Patient Name: Kacy Alaniz Procedure Date: [...] withDr Doe for consideration of hernia repair eMet Méndez MD 06/16/2024 1:15:14 PM This report has been signed electronically. Number of Addenda: 0 Note Initiated On: 06/16/2024 7:44 AM us Meet Méndez MD PROVATION PROCEDURES Final Re sult * [facility] Right Add Views Digital Mammo and [...] Urine 105 mg/dL 04/19/2024 3:03 PM EDT [facility] Microalbumin, Urine 4 <=20 mg/L 04/19/2024 3:03 PM EDT [facility] Microalb/Creat Ratio, Random Urine 3.8 1.3 - 30.0 mg/g 04/19/2024 3:03 PM EDT [facility] Urine Urine specimen collection, clean catch / Unknown Non-Blood Collection / Unknown 04/19/2024 8:25 AM EDT 04/19/2024 12:43 PM EDT Malini Godwin [facility] LAB URINE ORDERABL ES Final Result [facility] [address] [place] [address] [address] [place] [address], [place] [phone] from Last 3 Months or Most Recently Relevant to Health Maintenance Insurance MEDICARE [facility] MEDICARE [facility] Advance Directives * Presumed Full Code (Latest Code Status on File) Date Activated Date Inactivated Comments 08/10/2024 10:11 AM 08/10/2024 5:35 PM * Full Code Date Activated Date Inactivated Comments 06/16/2024 11:56 AM 06/16/2024 4:05 PM Care Teams Head Doffer Relationship Specialty Start Date End Date Kelly Baumann DO [address] [place] [address] PCP - General Family Medicine 03/24/24
--- OUTSIDE RECORDS SUMMARY | 2025-03-17 10:46 | XMS_ITS | Clinical Summary ---
Author Organization [facility] [email or web address] Address [address] [address] Care Team Providers Care Account Processor Name Role Phone Nadine Harley NP Primary [...] Adults 18 yrs or above (or HM Modifier)([facility]) 1955 Hepatitis C Virus Infection in Adolescents and Adults: Screening (or Modifier) ([facility]) 1972 SDOH Screening Reminder: Elsa batista for all adults ([facility]) 1972 Tobacco Smoking Cessation: i n Adults excluding Women: Behavioral and Pharmacotherapy Interventions ([facility]) 1972 DTaP/Tdap/Td Vaccines ([facility]) (1 - Tdap) 1973 Colorectal Cancer Screening 45 -75 Yrs (or HM Modifier) 1999 Colorectal Cancer: FLEXIBLE SIGMOIDOSCOPY Screening every 5 yrs 1999 Colorectal Cancer: Fecal Imm unochemical Test (FIT) Annually [facility] 1999 Colorectal Cancer: High-sens itivity gFOBT Screening Annually [facility] 1999 Colorectal Cancer: Stool Col oguard Screening every 3 yrs 1999 Colorectal Cancer:CT Colonog navya Screening every 5 yrs 1999 Lipid Screening: Every 5 yrs for Women aged 45+ (or HM Modifier) ([facility]) 2000 Breast Cancer: Screening Elsa ually age 50-74 yrs (or HM Modifier)([facility]) 2004 Pneumococcal Vaccination Scr eening: Patients 50+ yrs of age ([facility]) (1 of 1 - PCV) 2004 Osteoporosis Screening to Pr event Fractures: Women aged 65 years+ ([facility]) 2019 Zoster/Shingles Vaccine Seri es Screening: Adults aged 18+ yrs (or HM Modifiers)([facility]) (2 of 2) 07/19/2020 05/24/2020 COVID-19 Vaccine Screening: Initial Series and Booster Status ([facility]) (2023- season) 2024 Flu Vaccination: Ages 65+: Y early High Dose Recommended (or Modifier)([facility]) 06/23/2025 RSV Vaccines (1 - 1-dose 75+ series) 2029 Medical Devices Not on file Insurance Care Teams Account Processor Relationship Specialty Start Date End Date Nadine Harley NP [address] [place] [address] PCP - General Scale Expert 05/24/20
== END 2025-03-17 09:29 | disposition home or self-care (01) ==
LOC: HO.HOSX 09:28
PROVIDERS: PCP Family Medicine; Visit Provider Physician Assistant
DX: M50.90 Cervical disc disorder, unspecified, unspecified cervical region (principal); M48.02 Spinal stenosis, cervical region; G89.29 Other chronic pain
CPT/HCPCS: 72050; 99202

== ENCOUNTER → 2025-03-17 10:53 | Outpatient (BNV) | payer MEDICARE, OTHER, SELFPAY | PROVIDERS: PCP Family Medicine; Visit Provider Radiology Diagnostic Radiology | DX: M47.816 Spondylosis without myelopathy or radiculopathy, lumbar region (principal) | CPT/HCPCS: 72050 ==

== ENCOUNTER 2025-05-09 08:28 | Day surgery (SDC) | payer MEDICARE, OTHER, SELFPAY ==
--- OUTSIDE RECORDS SUMMARY | 2025-04-10 12:24 | XMS_ITS | Encounter Summary ---
Author Organization [facility] Address [address] [place] [address] Care Team Providers Care Picker / Packer Name Role Phone Pastor Oro DO, Diana Primary Care Provider + Encounter Details Date Type Department Care Team (Late st Contact Info) Description 05/23/2024 Orders Only [facility] Building [address], [address]th [place] [address] James Joseph MD [address] [place] [address] Social History Tobacco Use Types Packs/Day Years Used Date Smoking Tobacco: Never Passive Smoke Exposure: Past Smokeless Tobacco: Never Comments:: Alcohol Use Standard Drinks/Week Comments Not Currently 0 (1 standard drink = 0.6 oz pur e alcohol) occasional [facility] Utilities Answer Date Recorded In the [...] Description 06/07/2025 9:30 AM EDT Office Visit [facility] [address] [facility] Family Practice Department [address] [place] [address] Malini Godwin NP [address] [place] [address] 06/09/2025 2:30 PM EDT Follow-Up [facility] Nephrology [address] [address] Bipin Bobby MD [address] [place] [address] documented as of this encounter Visit Diagnoses Not on filedocumented in this encounter Care Teams Picker / Packer Relationship Specialty Start Date End Date Kelly Baumann DO [address] [place] [address] PCP - General Family Medicine 03/24/24 documented as of this encounter
--- OUTSIDE RECORDS SUMMARY | 2025-04-10 12:24 | XMS_ITS | Encounter Summary ---
Author Organization [facility] Address [address] [place] [address] Care Team Providers Care First Responder Name Role Phone Pastor Oro DO, Diana Primary Care Provider + Reason for Visit * Reason Comments Thrush Encounter Details Date Type Department Care Team (Late st Contact Info) Description 04/06/2025 10:30 AM EDT Office Visit [facility] [address] [facility] Family Practice Department [address] [place] [address] Pennie Almonte, MARIBELL [address] [place] [address] Oral thrush (Primary Dx) Social History Tobacco Use Types Packs/Day Years Used Date Smoking Tobacco: Never Passive Smoke Exposure: Past Smokeless Tobacco: Never Tobacco Cessation:Counseling Given: Not Answered Alcohol Use Standard Drinks/Week Comments Not Currently 0 (1 standard drink = 0.6 oz pur e alcohol) occasional - onece a month [facility] Utilities Answer Date Recorded In the past 12 months has th e [employer], gas, oil, or water [employer] threatened to shut off services in your [...] AM EDT documented as of this encounter Last Filed Vital Signs Vital Sign Reading Time Taken Comments Blood Pressure 118/60 04/06/2025 10:21 AM EDT Pulse 67 04/06/2025 10:21 AM EDT Temperature 36.6 ??C (97.9 ??F) 04/06/2025 10:21 AM E DT Respiratory Rate - - Oxygen Saturation 95% 04/06/2025 10:21 AM EDT Inhaled Oxygen Concentration - - Weight 52.3 kg (115 lb 3.2 oz) 04/06/2025 10:21 AM EDT Height 149.9 cm (4' 11.02 ) 04/06/2025 10:21 AM EDT Body Mass Index 23.25 04/06/2025 10:21 AM EDT documented in this encounter Patient Instructions * Attachments The following attachments cannot be sent through Care Everywhere. * Thrush in adults ([place]) documented in this encounter Progress Notes * Pennie Almonte NP - 04/06/2025 10:42 AM EDT Progress Note Assessment & Plan Oral thrush Mild thrush, rx for Nystatin S&S prescribed Oral care reviewed Return with any persisting sx. Orders: nystatin (MYCOSTATIN) 100,000 unit/mL suspension; Take 5 mL (500,000 Units total) by mouth 4 times a day for 14 days. Return if symptoms worsen or fail to improve, for Next scheduled follow up. Subjective HPI: Kacy Alaniz is a 69 year-old woman who presents today for concern for thrush, burning sensation and white film on the tongue. H/o diabetes - controlled - last A1C 6% On no inhalers. Non-smoker, no recent abx use. Medications Marked as Taking[1] Review of Systems Constitutional: Negative for fever. HENT: Tongue is burning, white film on tongue Negative for hoarse voice, mouth sores, sore throat and trouble swallowing. Respiratory: Negative. All other systems reviewed and are negative. Objective BP 118/60 Pulse 67 Temp 36.6 ??C (97.9 ??F) Ht 1.499 m (4' 11.02 ) Wt 52.3 kg (115 lb 3.2 oz) SpO2 95% BMI 23.25 kg/m?? Physical Exam Vitals reviewed. Constitutional: General: She is awake. She is not in acute distress. Appearance: Normal appearance. She is well-groomed and normal weight. HENT: Head: Normocephalic. Mouth/Throat: Lips: [place]. Mouth: Mucous membranes are moist. Pharynx: Oropharynx is clear. No posterior oropharyngeal erythema. Comments: Whitish film on tongue Eyes: Conjunctiva/sclera: Conjunctivae normal. Cardiovascular: Rate and Rhythm: Regular rhythm. Pulmonary: Effort: Pulmonary effort is normal. Breath sounds: Normal breath sounds and air entry. Neurological: Mental Status: She is alert. Psychiatric: Attention and Perception: Attention normal. Mood and Affect: Mood normal. Speech: Speech normal. Behavior: Behavior normal. Behavior is cooperative. Thought Content: Thought content normal. Cognition and Memory: Cognition normal. [1] Outpatient Medications Marked as Taking for the 04/06/25 encounter (Office Visit) with Pennie Almonte NP Medication Sig levothyroxine (SYNTHROID, LEVOTHROID) 88 mcg tablet TAKE 1 TABLET BY MOUTH EVERY DAY Linzess 145 mcg capsule Take 145 mcg by mouth once a day. Has this Rx, but presently not taking LORazepam (ATIVAN) 1 mg tablet Take 1 mg by mouth as needed. metFORMIN (GLUCOPHAGE) 500 mg tablet Take 1 tablet (500 mg total) by mouth every night. multivitamin (THERAGRAN) tablet Take 1 tablet by mouth once a day. simvastatin (ZOCOR) 40 mg tablet TAKE 1 TABLET BY MOUTH EVERY DAY AT NIGHT Vitamin D3 25 mcg (1,000 unit) capsule Take 1 capsule by mouth every night. documented in this encounter Miscellaneous Notes * Assessment & Plan Note - Pennie Almonte NP - 04/06/2025 10:59 AM EDT Associated Problem(s): Oral thrush Mild thrush, rx for Nystatin S&S prescribed Oral care reviewed Return with any persisting sx. Orders: nystatin (MYCOSTATIN) 100,000 unit/mL suspension; Take 5 mL (500,000 Units total) by mouth 4 times a day for 14 days. documented in this encounter Plan of Treatment Upcoming Encounters Date Type Department Care Team (Late st Contact Info) Description 06/07/2025 9:30 AM EDT Office Visit [address] Family Practice Department [address] [place] [address] Malini Godwin NP [address] [place] [address] 06/09/2025 2:30 PM EDT Follow-Up [facility] Nephrology [address] [address] Bipin Bobby MD [address] [place] [address] documented as of this encounter Visit Diagnoses Diagnosis Oral thrush- Primary Candidiasis of mouth documented in this encounter Care Teams First Responder Relationship Specialty Start Date End Date Kelly Baumann DO [address] [place] [address] PCP - General Family Medicine 03/24/24 documented as of this encounter
--- OUTSIDE RECORDS SUMMARY | 2025-04-10 12:24 | XMS_ITS | Clinical Summary ---
Author Organization [facility] Address [address] [place] [address] Care Team Providers Care Driver Guide Name Role Phone Unavailable Primary Care Provider [...] 50+ Ye ars (2 of 2 - PCV20 or PCV21) 02/24/2017 02/25/2016 Influenza Vaccine (Season Ended) 2025 Pneumococcal Vaccine: Peds ( 0 to 5 Years) and At-Risk Patients (6 to 49 Years) Discontinued 02/25/2016 Hepatitis B Vaccine Aged Out No longe r eligible based on patient's age to complete this topic Insurance [place] [address] Medicare
--- OUTSIDE RECORDS SUMMARY | 2025-04-10 12:24 | XMS_ITS | Clinical Summary ---
Author Organization [facility] [employer] Address [address] [place] [address] Care Team Providers Care Branch Lead Name Role Phone Nadine Harley NP Primary [...] Adults 18 yrs or above (or HM Modifier)([facility]) 1972 Hepatitis C Virus Infection in Adolescents and Adults: Screening (or Modifier) ([facility]) 1972 SDOH Screening Reminder: Elsa batista for all adults ([facility]) 1972 Tobacco Smoking Cessation: i n Adults excluding Women: Behavioral and Pharmacotherapy Interventions ([facility]) 1972 DTaP/Tdap/Td Vaccines ([facility]) (1 - Tdap) 1973 Colorectal Cancer Screening 45 -75 Yrs (or HM Modifier) 1999 Colorectal Cancer: FLEXIBLE SIGMOIDOSCOPY Screening every 5 yrs 1999 Colorectal Cancer: Fecal Imm unochemical Test (FIT) Annually [facility] 1999 Colorectal Cancer: High-sens itivity gFOBT Screening Annually [facility] 1999 Colorectal Cancer: Stool Col oguard Screening every 3 yrs 1999 Colorectal Cancer:CT Colonog navya Screening every 5 yrs 1999 Lipid Screening: Every 5 yrs for Women aged 45+ (or HM Modifier) ([facility]) 2000 Breast Cancer: Screening Elsa ually age 50-74 yrs (or HM Modifier)([facility]) 2004 Pneumococcal Vaccination Scr eening: Patients 50+ yrs of age ([facility]) (1 of 1 - PCV) 2004 Osteoporosis Screening to Pr event Fractures: Women aged 65 years+ ([facility]) 2019 Zoster/Shingles Vaccine Seri es Screening: Adults aged 18+ yrs (or HM Modifiers)([facility]) (2 of 2) 07/19/2020 05/24/2020 COVID-19 Vaccine Screening: Initial Series and Booster Status ([facility]) ( - 2023- season) 2024 Flu Vaccination: Ages 65+: Y early High Dose Recommended (or Modifier)([facility]) 06/23/2025 RSV Vaccines (1 - 1-dose 75+ series) 2029 [employer] Devices Not on file Insurance Care Teams Branch Lead Relationship Specialty Start Date End Date Nadine Harley NP [address] [place] [address] PCP - General [employer] 05/24/20
--- OUTSIDE RECORDS SUMMARY | 2025-04-10 12:24 | XMS_ITS | Encounter Summary ---
Author Organization [facility] Address [address] [place] [address] Care Team Providers Care Recruitment Intern Name Role Phone Pastor Oro DO, Diana Primary Care Provider + Encounter Details Date Type Department Care Team (Late st Contact Info) Description 12/05/2024 Orders Only [facility] CT Scan [address] [place], [place] [phone] Michelle Gonzales MD [address], [place] [phone] Social History Tobacco Use Types Packs/Day Years Used Date Smoking Tobacco: Never Passive Smoke Exposure: Past Smokeless Tobacco: Never Alcohol Use Standard Drinks/Week Comments Not Currently 0 (1 standard drink = 0.6 oz pur e alcohol) occasional - onece a month [facility] Utilities Answer Date Recorded In the past 12 months has e electric, gas, oil, or water [employer] threatened to shut off services in your [...] 06/07/2025 9:30 AM EDT Office Visit [facility] [address] [facility] Family Practice Department [address] [place] [phone] Malini Godwin NP [address] [place] [address] 06/09/2025 2:30 PM EDT Follow-Up [facility] [address] [facility] [address] [place] [address] Bipin Bobby MD [address] [place] [phone] documented as of this encounter Visit Diagnoses Not on filedocumented in this encounter Care Teams Recruitment Intern Relationship Specialty Start Date End Date Kelly Baumann DO [address] [place] [address] PCP - General Family Medicine 03/24/24 documented as of this encounter
--- OUTSIDE RECORDS SUMMARY | 2025-04-10 12:25 | XMS_ITS | Referral Summary ---
Author Organization [facility] Address [address] [place] [address] Care Team Providers Care Dental Hygienist Name Role Phone Pastor Oro DO, Diana Primary Care Provider + Encounters Date Type Department Care Team Description 04/06/2025 10:30 AM EDT Office Visit [address] Family Practice Department [address] [place] [phone] Pennie Almonte, MARIBELL Oral thrush (Primary Dx) 04/05/[address] Family Practice Department [address] [place] [address] [phone] Kelly Baumann DO 02/28/2025 Orders Only [facility] - External Imaging [address] [place] [phone] Radiology, External 02/21/2025 3:00 PM EDT Office Visit [facility] Nephrology [address] [place] [address] Bipin Bobby MD Hyponatremia (Primary Dx) 02/19/[address] Practice Department [address] [place] [address] [phone] Kelly Baumann DO Hypercholesterolemia (Primary Dx) 02/16/[address] Family Practice Department [address] [place] [address] [phone] Talia Roque MA 02/14/[address] Family Practice Department [address] [place] [phone] Kelly Baumann V, DO 02/08/2025 Results Follow-Up [address] Family Practice Department [address] [place] [address] Malini Godwin NP Results 02/05/2025 Results Follow-Up [address] Family Practice Department [address] [place] [address] Kelly Baumann V, DO Results 02/03/2025 11:42 AM EDT - 02/03/2025 11:59 PM EDT Hospital Encounter [facility] Xray Department [address] [place] [phone] Left hip pain Discharge Disposition: Home or Self Care () 02/03/2025 11:42 AM EDT - 02/03/2025 11:59 PM EDT Hospital Encounter [facility] Xray Department [address] [place] [phone] Left hip pain Discharge Disposition: Home or Self Care () 02/03/2025 10:30 AM EDT Office Visit [address] Family Practice Department [address] [place] [phone] Malini Godwin NP Left hip pain (Primary Dx) 02/01/2025 9:31 AM EDT - 02/01/2025 11:59 PM EDT Hospital Encounter [facility] Ultrasound Department [address] [place] [phone] Thyroid nodule Discharge Disposition: Home or Self Care () 01/18/[address] Family Practice Department [address] [place] [phone] Kelly Baumann V, DO Results 01/17/2025 Results Follow-Up [address] Practice Department [address] [place] [phone] Kelly Baumann DO 01/17/2025 Results Follow-Up [address] Practice Department [address] [place] [phone] Malini Godwin NP 01/16/2025 10:04 AM EST - 01/16/2025 11:59 PM EST Hospital Encounter [facility] CT Scan Department [address] [place] [address] Dizziness; Disequilibrium Discharge Disposition: Home or Self Care () 01/16/2025 9:17 AM EST - 01/16/2025 10:03 AM EST Hospital Encounter [facility] Ultrasound Department [address] [place] [address] 26[address] Kidney lesion Discharge Disposition: Home or Self Care () 01/15/2025 Results Follow-Up [address] Practice Department [address] [place] [phone] Kelly Baumann DO Results 01/11/[address] Practice Department [address] [place] [phone] Kelly Baumann DO from Last 3 Months Allergies Active Allergy Reactions Criticality Noted Date Comments Codeine Vomiting 04/13/2024 Bismuth Subsalicylate Vomiting 08/03/2024 Medications * This document contains information received from the source organization and may not represent a complete record from that organization. LORazepam (ATIVAN) 1 mg tablet Take 1 mg by mouth as needed. 3 Active Linzess 145 mcg capsule Take 145 mcg by mouth once a day. Has this Rx, but presently not taking 4 Active Vitamin D3 25 mcg (1,000 unit) capsule Take 1 capsule by mouth every night. Active levothyroxine (SYNTHROID, LEVOTHROID) 88 mcg tabletIndication s:Hypothyroidism , unspecified type TAKE 1 TABLET BY MOUTH EVERY DAY 90 tablet 1 5 Active metFORMIN (GLUCOPHAGE) 500 mg tablet Take 1 tablet (500 mg total) by mouth every night. 90 tablet 1 5 Active simvastatin (ZOCOR) 40 mg tabletIndication s:Hypercholester olemia TAKE 1 TABLET BY MOUTH EVERY DAY AT NIGHT 90 tablet 3 5 Active multivitamin (THERAGRAN) tablet Take 1 tablet by mouth once a day. Active nystatin (MYCOSTATIN) 100,000 unit/mL suspensionIndica tions:Oral thrush Take 5 mL (500,000 Units total) by mouth 4 times a day for 14 days. 280 mL 5 04/20/20 25 Active Active Problems Problem Noted Date Diagnosed Date Oral thrush 04/06/2025 Assessment & Plan (04/06/2025 10:59 AM EDT): Mild thrush, rx for Nystatin S&S prescribed Oral care reviewed Return with any persisting sx. Orders: nystatin (MYCOSTATIN) 100,000 unit/mL suspension; Take 5 mL (500,000 Units total) by mouth 4 times a day for 14 days. Hyponatremia 02/21/2025 Disequilibrium 12/15/2024 Assessment & Plan [...] 26.26 kg/m?? Statin: Zocor (simvastatin) Aspirin: no Coin Box Inspector: No Last eye exam: 01/2024 Pneumococcal vaccine: Prenar 20 Plan: Continue on Metformin Suggested low cholesterol diet. Encouraged aerobic exercise. Discussed foot care. Reminded to get yearly retinal exam. Interstitial lung disease 04/13/2024 Assessment & Plan (04/13/2024 4:53 PM EDT): Pulmonary scaring. Follows with pulmonology Dr. Borrero through [facility]. Currently not on any inhalers. Other [...] Vaccine, 23 Valent 09/06/2020 Pneumococcal conjugate PCV20,polysaccharide [id number] conjugate, adjuvant, PF (Prevnar 20) 02/18/2023 RSV [...] e alcohol) occasional - onece a month [facility] Utilities Answer Date Recorded In the [...] 04/06/2025 10:21 AM E DT Respiratory Rate 18 08/18/2024 10:41 AM EDT Oxygen Saturation 95% 04/06/2025 10:21 AM EDT Inhaled Oxygen Concentration - - Weight 52.3 kg (115 lb 3.2 oz) 04/06/2025 10:21 AM EDT Height 149.9 cm (4' 11.02 ) 04/06/2025 10:21 AM EDT Body Mass Index 23.25 04/06/2025 10:21 AM EDT Plan of Treatment Upcoming Encounters Date Type Department Care Team (Late st Contact Info) Description 06/07/2025 9:30 AM EDT Office Visit [facility] [address] [facility] Family Practice Department [address] [place] [address] Malini Godwin NP [address] [place] [address] 06/09/2025 2:30 PM EDT Follow-Up [facility] Nephrology [address] [address] Bipin Bobby MD [address] [place] [phone] Medical Devices Implanted Type Area Milk Route Supervisor Device Identifier Shelf Expiration Date Model / Serial / Lot Mesh Inguinal Light Left Medium 3.1inx5.3in 3dmax - [id number] Implanted:Qty: 1 on 08/10/2024 by Leonid Doe MD at [facility] Mesh Left: Groin [employer] 02/17/2027 [id number] / / [id number] Mesh Inguinal Light Right Medium 3.1inx5.3in 3dmax - [id number] Implanted:Qty: 1 on 08/10/2024 by Leonid Doe MD at [facility] Mesh Right: Groin [employer] 09/19/2028 [id number] / / [id number] Procedures * Due to [place] state law, this organization might not be [...] to Health Maintenance Results * Due to [place] state law, this organization might not be [...] obtain the completed interpretation. ? Workstation ID: [id number] Narrative 02/03/2025 6:53 PM EDT COMPARISON: There are no prior studies available for comparison at this time. Resulting Agency Comment [id number] Procedure Note Carmelo Cobos MD - 02/03/2025 [...] possible to obtain thecompleted interpretation. Workstation ID: [id number] us Malini Godwin NP IMG XR PROCEDURES Final Result * XR Hip Left 2+ View W Pelvis (02/03/2025 12:02 PM EDT) Anatomical Region Laterality Modality Body, Pelvis, Hip Left Radiographic I owen 02/03/2025 6:50 PM EDT Impressions 02/03/2025 6:53 [...] obtain the completed interpretation. ? Workstation ID: [id number] Narrative 02/03/2025 6:53 PM EDT COMPARISON: There are no prior studies available for comparison at this time. Resulting Agency Comment [id number] Procedure Note Carmelo Cobos MD - 02/03/2025 [...] possible to obtain thecompleted interpretation. Workstation ID: [id number] us Malini Godwin NP IMG XR PROCEDURES [...] No FNA or follow-up ultrasound. Reference: Maris FERGUSON et al. J Am Karina Radiol. 14:5, March 2017, [phone]. If this radiology report contains a blank impression section, it is an incomplete radiology report. ??Please contact the interpreting radiologist or applicable radiology division as soon as possible to obtain the completed interpretation. ? Workstation ID: [id number] Narrative 02/01/2025 12:39 PM EDT EXAMINATION: ULTRASOUND [...] (2 points); Hyperechoic or isoechoic (1 point); Twtbb-wqwc-lmrn shape (0 points); Smooth margins (0 points); [...] gland. No cervical lymphadenopathy. Resulting Agency Comment [id number] Procedure Note Kin Robledo MD - 02/01/2025 [...] Solid (2 points); Hyperechoic or isoechoic (1 point);Gziyk-ukac-snty shape (0 points); Smooth margins (0 points); [...] No FNA or follow-up ultrasound. Reference: Maris FERGUSON et al. J Am Karina Radiol. 14:5, March 2017, [phone]. If this radiology report contains a blank impression section, it is anincomplete radiology report. Please contact the interpreting radiologistor applicable radiology division as soon as possible to obtain thecompleted interpretation. Workstation ID: [id number] us Kelly Oro DO IMG US PROCEDURES Final Result * MRI Cervical Spine without Contrast (01/23/2025 5:50 PM EST) Anatomical Region Laterality Modality Spine, C-spine Magnetic Resonan ce 01/23/2025 5:20 PM EST Narrative 01/25/2025 10:44 AM EST [facility] Accession Number: [id number] Patient Name: Kacy Alaniz Date of : 1955 Date of Exam: 01-23-2025 Referring Physician: Kelly Baumann ?[facility] ?[address] [facility] ?[place], [place] [address] Exam: MR Cervical Spine (C-) CPT 76535 Room Description: [facility] 1.5 MRI of the cervical spine [...] Jose Juan Franco MD Procedure Note Provider, Angel - 01/25/2025 [place] [facility] Accession Number: [id number] Patient Name: Kacy Alaniz Date of : 1955 Date of Exam: 01-23-2025 Referring Physician: Kelly Baumann [address] [address] Exam: MR Cervical Spine (C-) CPT 16451 Room Description: [facility] 1.5 MRI of the cervical spine [...] Juan Franco MD us Kelly Baumann V, DO IMG MRI PROCEDURES Final Result * [...] the ordering or responsible provider via the [employer] system on 01/17/2025 3:10 PM. ??Receipt of this communication by the responsible provider will be documented in [employer] Actionable Findings upon receiving acknowledgement if applicable, Message ID [id number]. If this radiology report contains a blank impression section, it is an incomplete radiology report. ??Please contact the interpreting radiologist or applicable radiology division as soon as possible to obtain the completed interpretation. ? Workstation ID: [id number] Up-to-date CT equipment and radiation dose reduction [...] Lung apices are clear. Resulting Agency Comment [id number] us Kelly Baumann V, IMG CT PROCEDURES [...] obtain the completed interpretation. ? Workstation ID: [id number] Narrative 01/16/2025 12:38 PM EST EXAMINATION: Ultrasound [...] stone in the bladder. Resulting Agency Comment [id number] Procedure Note González Rueda MD - 01/16/2025 [...] possible to obtain thecompleted interpretation. Workstation ID: [id number] us Malini Godwin NP IMG US PROCEDURES Final Result * (ABNORMAL) Basic metabolic panel (01/11/2025 9:15 AM EST) NA 130(L) 136 - 145 mmol/L 01/11/2025 3:17 PM EST [facility] K 4.4 3.5 - 5.1 mmol/L 01/11/2025 3:17 PM EST [facility] Cl 93(L) 98 - 109 mmol/L 01/11/2025 3:17 PM EST [facility] CO2 26 22 - 32 mmol/L 01/11/2025 3:17 PM EST [facility] BUN 10 8 - 23 mg/dL 01/11/2025 3:17 PM EST [facility] Creatinine 0.63 0.50 - 1.12 mg/dL 01/11/2025 3:17 PM EST [facility] Glucose 99 60 - 99 mg/dL 01/11/2025 3:17 PM EST [facility] Calcium 9.6 8.4 - 10.4 mg/dL 01/11/2025 3:17 PM EST [facility] Anion Gap 15 >=0 01/11/2025 3:17 PM EST [facility] eGFR >90 >=60 mL/min/1. 73m2 01/11/2025 3:17 PM EST [facility] Comment:The estimated glomer ular filtration [...] EST 01/11/2025 12:54 PM EST us Kelly Oro DO LAB BLOOD ORDERABLES Fin al Result [facility] [address] [facility] [address] [place] [address], * Hepatitis C Antibody w/Reflex to HCV RNA, Quantitative PCR (12/05/2024 10:51 AM EST) Hepatitis C Antibody Interpretation Nonreactive Nonreactive 12/05/2024 4:26 PM EST [facility] Blood Structure of peripheral vein / Unknown Venipuncture / Unknown 12/05/2024 10:51 AM EST 12/05/2024 12:45 PM EST Kelly Oro DO LAB BLOOD ORDERABLES Fin al Result [facility] [address] [place] [address], [place] [phone] * (ABNORMAL) Hemoglobin A1c (12/05/2024 10:51 AM EST) Pathologist [facility] Hemoglobin A1c 6.0(H) 4.0 - 5.7 % 12/05/2024 2:18 PM EST [facility] Estimated Average Glucose 126 mg/dL 12/05/2024 2:18 PM EST [facility] Blood Structure of peripheral vein / Unknown Venipuncture / Unknown 12/05/2024 10:51 AM EST 12/05/2024 12:44 PM EST Malini Godwin FOOT GATHERER LAB BLOOD ORDERABL ES Final Result [facility] [address] [place] [address], [place] [phone] * COLONOSCOPY (06/16/2024) Narrative Procedure Note Meet Méndez MD - 06/16/2024 7:44 AM EDT [facility] Patient Name: Kacy Alaniz Procedure Date: 06/16/2024 [...] MD PROVATION PROCEDURES Final Re sult * [facility] Right Add Views Digital Mammo and Terrence (06/06/2024 1:29 PM EDT) Anatomical Region Laterality Modality Breast Right Mammography Narrative 06/06/2024 1:38 PM EDT INDICATIONS Additional evaluation of right breast asymmetry. TECHNIQUE [facility] Right Add Views Digital Mammo and Terrence. [...] to obtain the completed interpretation. Malini Godwin FOOT GATHERER IMG BI PROCEDURES Final Result * Microalbumin / creatinine, urine ratio (Lab Collect) (04/19/2024 8:25 AM EDT) Creatinine, Urine 105 mg/dL 04/19/2024 3:03 PM EDT [facility] Microalbumin, Urine 4 <=20 mg/L 04/19/2024 3:03 PM EDT [facility] Microalb/Creat Ratio, Random Urine 3.8 1.3 - 30.0 mg/g 04/19/2024 3:03 PM EDT [facility] Urine Urine specimen collection, clean catch / Unknown Non-Blood Collection / Unknown 04/19/2024 8:25 AM EDT 04/19/2024 12:43 PM EDT us Malini Godwin FOOT GATHERER LAB URINE ORDERABL ES Final Result [facility] [address] [place] [address] [address] [place] [address], from Last 3 Months or Most Recently Relevant to Health Maintenance Insurance MEDICARE [facility] MEDICARE [facility] Advance Directives * Presumed Full Code (Latest Code Status on File) Date Activated Date Inactivated Comments 08/10/2024 10:11 AM 08/10/2024 5:35 PM * Full Code Date Activated Date Inactivated Comments 06/16/2024 11:56 AM 06/16/2024 4:05 PM Care Teams Dental Hygienist Relationship Specialty Start Date End Date Kelly Baumann DO [address] [place] [phone] PCP - General Family Medicine 03/24/24
--- OUTSIDE RECORDS SUMMARY | 2025-04-10 12:25 | XMS_ITS | Clinical Summary ---
Author Organization [facility] Address [address] [place] [address] Care Team Providers Care Licensed Retail Supervisor Name Role Phone Pastor Oro DO, Diana [...] day for 14 days. 280 mL 5 05/29/20 25 Active Active Problems Problem Noted Date [...] 26.26 kg/m?? Statin: Zocor (simvastatin) Aspirin: no Production Crew Supervisor: No Last eye exam: 01/2024 Pneumococcal vaccine: Prenar 20 Plan: Continue on Metformin Suggested low cholesterol diet. Encouraged aerobic exercise. Discussed foot care. Reminded to get yearly retinal exam. Interstitial lung disease 04/13/2024 Assessment & Plan (04/13/2024 4:53 PM EDT): Pulmonary scaring. Follows with pulmonology Dr. Borrero through [facility]. Currently not on any [...] Description 04/06/2025 10:30 AM EDT Office Visit [facility] [address] [facility] Family Practice Department [address] [place] [address] [phone] Pennie Almonte NP Oral thrush (Primary Dx) 04/05/2025 Telephone [facility] [address] [facility] Family Practice Department [address] [place] [phone] Kelly Baumann DO 02/28/2025 Orders Only [facility] - External Imaging [address] [facility] [place] [address] Radiology, External 02/21/2025 3:00 PM EDT Office Visit [facility] [address] [place] [address] 24259 Bipin Bobby MD Hyponatremia (Primary Dx) 02/19/[address] Family Practice Department [address] [place] [address] [phone] Kelly Baumann V, Hypercholesterolemia (Primary Dx) 02/16/[address] Family Practice Department [address] [place] [address] [phone] Talia Roque MA 02/14/[address] Practice Department [address] [place] [address] 16187 Kelly Baumann V, DO 02/08/2025 Results Follow-Up [address] Practice Department [address] [place] [address] [phone] Malini Godwin NP Results 02/05/2025 Results Follow-Up [address] Practice Department [address] [place] [address] [phone] Kelly Baumann V, Results 02/03/2025 11:42 AM EDT - 02/03/2025 11:59 PM EDT [facility] Xray Department [address] [place] [address] [phone] Left hip pain Discharge Disposition: Home or Self Care (01) 02/03/2025 11:42 AM EDT - 02/03/2025 11:59 PM EDT Hospital [facility] Xray Department [address] [place] [address] 44321 Left hip pain Discharge Disposition: Home or Self Care () 02/03/2025 10:30 AM EDT Office Visit [address] Family Practice Department [address] [place] [phone] Malini Godwin NP Left hip pain (Primary Dx) 02/01/2025 9:31 AM EDT - 02/01/2025 11:59 PM EDT Hospital [facility] Ultrasound Department [address] [place] [address] 95898 Thyroid nodule Discharge Disposition: Home or Self Care () 01/18/[address] Practice Department [address] [place] [address] 05240 Kelly Baumann V, DO Results 01/17/2025 Results Follow-Up [address] Practice Department [address] [place] [address] [phone] Kelly Baumann V, DO 01/17/2025 Results Follow-Up [address] Practice Department [address] [place] [address] [phone] Malini Godwin NP 01/16/2025 10:04 AM EST - 01/16/2025 11:59 PM EST [facility] CT Scan Department [address] [place] [address] 25482 Dizziness; Disequilibrium Discharge Disposition: Home or Self Care (01) 01/16/2025 9:17 AM EST - 01/16/2025 10:03 AM EST Hospital En[facility] Ultrasound Department [address] [place] [address] 56322 Kidney lesion Discharge Disposition: Home or Self Care () 01/15/2025 Results Follow-Up [address] Family Practice Department [address] [place] [address] [phone] Kelly Baumann DO Results 01/11/[address] Family Practice Department [address] [place] [address] [phone] Kelly Baumann DO from Last 3 Months Immunizations Immunization Administration Dates Next Due COVID-19, Moderna, mRNA, LNP -S, Bivalent Booster, PF 08/21/2022 Covid-19 Monovalent Vaccine, Moderna, mRNA, PF 04/17/2022,09/19/2021,02/16/2021,01/18 Covid-19, Moderna, mRNA, Vac cine, PF, 50 mcg/0.5 mL (for age 12 y and up) 08/29/2024,08/25/2023 Influenza, High Dose Seasona l, Preservative Free 08/29/2024,08/09/2019 Influenza, High Dose Seasona l, Quadrivalent PF 07/24/2021 Influenza, Injectable, Madin [place] Canine Kidney, Preservative Free, Quadrivalent 08/23/2018 Influenza, Injectable, Quadr ivalent Preservative Free 08/12/2023,08/21/2022 Influenza, Injectable, Quadr ivalent, Preservative Free 08/07/2017 Influenza, Quadrivalent, Rec ombinant, Injectable, PF 08/20/2020 Influenza, Trivalent, MDV, Injectable 08/11/2016 ,2011,08/12/2010 Pneumococcal Conjugate Vacci ne, 13 Valent 10/06/2019,02/25/2016 Pneumococcal Polysaccharide Vaccine, 23 Valent 09/06/2020 Pneumococcal conjugate PCV20,polysaccharide [id number] conjugate, adjuvant, PF (Prevnar 20) 02/18/2023 RSV [...] e alcohol) occasional - onece a month [facility] Utilities Answer Date Recorded In the [...] Description 06/07/2025 9:30 AM EDT Office Visit [facility] [address] [facility] Family Practice Department [address] [place] [address] Malini Godwin NP [address] [place] [address] 06/09/2025 2:30 PM EDT Follow-Up [facility] [address] [facility] [address] [place] [address] Bipin Bobby MD [address] [place] [phone] Health Maintenance Due Date Last Done Comments [...] Screening Completed 12/05/2024 Alcohol/Substance Use Screening Completed 04/06/2025 Hepatitis B Vaccines Aged Out No long er eligible based on patient's age to complete this topic Medical Devices Implanted Type Area Can Tester Device Identifier Shelf Expiration Date Model / Serial / Lot Mesh Inguinal Light Left Medium 3.1inx5.3in 3dmax - [id number] Implanted:Qty: 1 on 08/10/2024 by Leonid oDe MD at [facility] Mesh Left: Groin [employer] 02/17/2027 [id number] / / [id number] Mesh Inguinal Light Right Medium 3.1inx5.3in 3dmax - [id number] Implanted:Qty: 1 on 08/10/2024 by Leonid Doe MD at [facility] Mesh Right: Groin [employer] 09/19/2028 [id number] / / [id number] Procedures * Due to [place] state law, this organization might not be [...] to Health Maintenance Results * Due to [place] state law, this organization might not be [...] obtain the completed interpretation. ? Workstation ID: [id number] Narrative 02/03/2025 6:53 PM EDT COMPARISON: There are no prior studies available for comparison at this time. Resulting Agency Comment [id number] Procedure Note Carmelo Cobos MD - 02/03/2025 [...] possible to obtain thecompleted interpretation. Workstation ID: [id number] Malini Godwin NP IMG XR PROCEDURES Final [...] obtain the completed interpretation. ? Workstation ID: [id number] Narrative 02/03/2025 6:53 PM EDT COMPARISON: There are no prior studies available for comparison at this time. Resulting Agency Comment [id number] Procedure Note Carmelo Cobos MD - 02/03/2025 [...] possible to obtain thecompleted interpretation. Workstation ID: [id number] us Malini Godwin FIRST OFFICER IMG XR PROCEDURES Final Result * US [...] obtain the completed interpretation. ? Workstation ID: [id number] Narrative 02/01/2025 12:39 PM EDT EXAMINATION: ULTRASOUND [...] (2 points); Hyperechoic or isoechoic (1 point); Pcmqi-zfmc-mort shape (0 points); Smooth margins (0 points); [...] gland. No cervical lymphadenopathy. Resulting Agency Comment [id number] Procedure Note Kin Robledo MD - 02/01/2025 [...] Solid (2 points); Hyperechoic or isoechoic (1 point);Ytqfj-hzzc-puat shape (0 points); Smooth margins (0 points); [...] possible to obtain thecompleted interpretation. Workstation ID: [id number] us Kelly Immenhausen V, DO IMG US PROCEDURES Final Result * MRI Cervical Spine without Contrast (01/23/2025 5:50 PM EST) Anatomical Region Laterality Modality Spine, C-spine Magnetic Resonan ce 01/23/2025 5:20 PM EST Narrative 01/25/2025 10:44 AM EST [facility] at [facility], [facility] Accession Number: [id number] Patient Name: Kacy Alaniz Date of : 1955 Date of Exam: 01-23-2025 Referring Physician: Kelly Baumann ?[facility] ?[address] [facility] ?[place], [place] [address] Exam: MR Cervical Spine (C-) CPT 32541 Room Description: [facility] 1.5 MRI of the cervical spine [...] MD Procedure Note Provider, Jeanne - 01/25/2025 [facility] at [facility], [facility] Accession Number: [id number] Patient Name: Kacy Alaniz Date of : 1955 Date of Exam: 01-23-2025 Referring Physician: Kelly Baumann [address] [address] Exam: MR Cervical Spine (C-) CPT 47303 Room Description: [facility] 1.5 MRI of the cervical spine [...] Signed By: Jose Juan Franco MD Kelly Baumann V, IMG MRI PROCEDURES Final [...] the ordering or responsible provider via the [employer] system on 01/17/2025 3:10 PM. ??Receipt of this communication by the responsible provider will be documented in [employer] Actionable Findings upon receiving acknowledgement if applicable, Message ID [id number]. If this radiology report contains a blank impression section, it is an incomplete radiology report. ??Please contact the interpreting radiologist or applicable radiology division as soon as possible to obtain the completed interpretation. ? Workstation ID: [id number] Up-to-date CT equipment and radiation dose reduction [...] Lung apices are clear. Resulting Agency Comment [id number] us Kelly Coronelcynthia V, DO IMG CT PROCEDURES Edited Result [...] obtain the completed interpretation. ? Workstation ID: [id number] Narrative 01/16/2025 12:38 PM EST EXAMINATION: Ultrasound [...] stone in the bladder. Resulting Agency Comment [id number] Procedure Note González Rueda MD - 01/16/2025 [...] possible to obtain thecompleted interpretation. Workstation ID: [id number] us Malini Godwin NP IMG US PROCEDURES Final Result * (ABNORMAL) Basic metabolic panel (01/11/2025 9:15 AM EST) NA 130(L) 136 - 145 mmol/L 01/11/2025 3:17 PM EST [facility] K 4.4 3.5 - 5.1 mmol/L 01/11/2025 3:17 PM EST [facility] Cl 93(L) 98 - 109 mmol/L 01/11/2025 3:17 PM EST [facility] CO2 26 22 - 32 mmol/L 01/11/2025 3:17 PM EST [facility] BUN 10 8 - 23 mg/dL 01/11/2025 3:17 PM EST [facility] Creatinine 0.63 0.50 - 1.12 mg/dL 01/11/2025 3:17 PM EST [facility] Glucose 99 60 - 99 mg/dL 01/11/2025 3:17 PM EST [facility] Calcium 9.6 8.4 - 10.4 mg/dL 01/11/2025 3:17 PM EST [facility] Anion Gap 15 >=0 01/11/2025 3:17 PM EST [facility] eGFR >90 >=60 mL/min/1. 73m2 01/11/2025 3:17 PM EST [facility] Comment:The estimated glomer ular filtration [...] DO LAB BLOOD ORDERABLES Fin al Result [facility] [address] [facility] [address] [place] [address], * Hepatitis C Antibody w/Reflex to HCV RNA, Quantitative PCR (12/05/2024 10:51 AM EST) Hepatitis C Antibody Interpretation Nonreactive Nonreactive 12/05/2024 4:26 PM EST [facility] Blood Structure of peripheral vein / Unknown Venipuncture / Unknown 12/05/2024 10:51 AM EST 12/05/2024 12:45 PM EST Kelly Oro DO LAB BLOOD ORDERABLES Fin al Result Performing Organization Address City/[facility]/ZIP Co de Phone Number [facility] [address] [place] [address], * (ABNORMAL) Hemoglobin A1c (12/05/2024 10:51 AM EST) Hemoglobin A1c 6.0(H) 4.0 - 5.7 % 12/05/2024 2:18 PM EST [facility] Estimated Average Glucose 126 mg/dL 12/05/2024 2:18 PM EST [facility] Blood Structure of peripheral vein / Unknown Venipuncture / Unknown 12/05/2024 10:51 AM EST 12/05/2024 12:44 PM EST Malini Godwin FIRST OFFICER LAB BLOOD ORDERABL ES Final Result Performing Organization Address City/[facility] Co de Phone Number [facility] [address] [facility] [address] [place] [address], [place] [phone] * COLONOSCOPY (06/16/2024) Narrative Procedure Note Meet Méndez MD - 06/16/2024 7:44 AM EDT [facility] Patient Name: Kacy Alaniz Procedure Date: [...] Méndez' office will make an appointment withDr Brook for consideration of hernia repair Meet Méndez MD 06/16/2024 1:15:14 PM This report has been signed electronically. Number of Addenda: 0 Note Initiated On: 06/16/2024 7:44 AM Meet Méndez MD PROVATION PROCEDURES Final Re sult * BRIAN Right Add Views Digital Mammo and Terrence [...] to obtain the completed interpretation. Malini Godwin FIRST OFFICER IMG BI PROCEDURES Final Result * Microalbumin / creatinine, urine ratio (Lab Collect) (04/19/2024 8:25 AM EDT) Creatinine, Urine 105 mg/dL 04/19/2024 3:03 PM EDT [facility] Microalbumin, Urine 4 <=20 mg/L 04/19/2024 3:03 PM EDT [facility] Microalb/Creat Ratio, Random Urine 3.8 1.3 - 30.0 mg/g 04/19/2024 3:03 PM EDT [facility] Urine Urine specimen collection, clean catch / Unknown Non-Blood Collection / Unknown 04/19/2024 8:25 AM EDT 04/19/2024 12:43 PM EDT us Malini Godwin FIRST OFFICER LAB URINE ORDERABL ES Final Result [facility] [address] [address], [place] [phone] from Last 3 Months or Most Recently Relevant to Health Maintenance Insurance MEDICARE [facility] MEDICARE [facility] Advance Directives * Presumed Full Code (Latest Code Status on File) Date Activated Date Inactivated Comments 08/10/2024 10:11 AM 08/10/2024 5:35 PM * Full Code Date Activated Date Inactivated Comments 06/16/2024 11:56 AM 06/16/2024 4:05 PM Care Teams Licensed Retail Supervisor Relationship Specialty Start Date End Date Kelly Baumann DO [address] [place] [address] PCP - General Family Medicine 03/24/24
--- OUTSIDE RECORDS SUMMARY | 2025-04-10 12:25 | XMS_ITS | Encounter Summary ---
Author Organization [facility] Address [address] [place] [address] Care Team Providers Care Manager Compensation Name Role Phone Pastor Oro DO, Diana Primary Care Provider + Encounter Details Date Type Department Care Team (Late st Contact Info) Description 04/05/2025 Telephone [facility] [address] [facility] Family Practice Department [address] [place] [address] Kelly Baumann DO [address] [place] [address] Social History Tobacco Use Types Packs/Day Years Used Date Smoking Tobacco: Never Passive Smoke Exposure: Past Smokeless Tobacco: Never Alcohol Use Standard Drinks/Week Comments Not Currently 0 (1 standard drink = 0.6 oz pur e alcohol) occasional - onece a month [facility] Utilities Answer Date Recorded In the past 12 months has e [employer], gas, oil, or water [employer] threatened to shut off services in your [...] 06/07/2025 9:30 AM EDT Office Visit [facility] [address] [facility] Family Practice Department [address] [place] [phone] Malini Godwin NP [address] [place] [address] 06/09/2025 2:30 PM EDT Follow-Up [facility] Nephrology [address] [facility] [address] [place] [address] Bipin Bobby MD [address] [place] [phone] documented as of this encounter Visit Diagnoses Not on filedocumented in this encounter Care Teams Manager Compensation Relationship Specialty Start Date End Date Kelly Baumann DO [address] [place] [address] PCP - General Family Medicine 03/24/24 documented as of this encounter
[2025-04-25 09:57] VITALS: BP 149/70; PULSE 73; RESP 16; O2SAT 99; BMI 22.6
--- NOTE | 2025-04-25 10:26 | HO.ANESPROP2 ---
Documented by User: Joelle Bullard NP 04/27/25 12:10 HPI - Anesthesia Eval Consult details Narrative: 69yo F for C4-5, C5-6 Ant Cerv Discectomy w/ fusion, 05/09/25 * Pt declines preop versed d/t anxiety - wants to be alert for OR * No recent illness No CP/SOB with walking on treadmill, yardwork or stairs GERD: Tums prn Asthma: No inhaler for years DM: Metformin only, Does not check POC at home. A1C = 6% in November Hyponatremia: Following with Dr Higgins. Likely hyposomolar. 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 Free water limited to 50 ounces. Last Na 130 on 12/2024. Repeat at [facility] Active Problems Active Problems: All Active Problems Cervical disc disorder (Acute) Past Medical History Medical History Hyponatremia Arthritis Back pain IBS (irritable bowel syndrome) GERD (gastroesophageal reflux disease) PTSD (post-traumatic stress disorder) Sleep apnea SOB (shortness of breath) Asthma Bronchiectasis Thyroid disease Diabetes Elevated cholesterol Family History Family history of problems with anesthesia: No Surgical History Surgical History H/O colonoscopy H/O tubal ligation History of lumpectomy of both breasts History of carpal tunnel surgery of left wrist Hx of hernia repair Hx of tonsillectomy History of Problems with Anesthesia: No Social History Social History Are you a primary hospice care consultant to a significant other at home: No Do you presently have visiting nurse or other home services: No Patient Tobacco Use Status: Never used Tobacco Use of substances other than those prescribed or required for medical reasons: No Have you been hit, kicked, punched, or otherwise hurt by someone within the past year? If so, by whom?: No Are you DNR?: No Advance Directives: No Advance Directives Information Provided: Yes Advance Directives on File: No Patient : No : No Poor oral hygiene: Yes Meds Allergies Allergy/AdvReac Type Severity Reaction Status Date / Time codeine Allergy Unknown Verified 05/09/25 09:46 Home Medications ?Medication ?Instructions ?Recorded ?Confirmed ?Last Taken ?Type aspirin 81 mg tablet,delayed 81 mg PO DAILY 03/17/25 04/25/25 05/01/25 History release (Adult Low Dose Aspirin) levothyroxine 88 mcg tablet 88 mcg PO DAILY 03/17/25 04/25/25 05/09/25 History linaclotide 145 mcg capsule 145 mcg PO DAILY 03/17/25 04/25/25 Unknown History (Linzess) lorazepam 1 mg tablet 0.5 mg PO DAILY PRN Anxiety 03/17/25 04/25/25 05/09/25 History metformin 500 mg tablet 500 mg PO QPM 03/17/25 04/25/25 Unknown History simvastatin 40 mg tablet 40 mg PO QPM 03/17/25 04/25/25 Unknown History multivitamin 1 tab PO QPM 04/24/25 04/25/25 Unknown History cholecalciferol (vitamin D3) 25 25 mcg PO DAILY 04/25/25 04/25/25 Unknown History mcg (1,000 unit) capsule (Vitamin D3) Exam Height,Weight and Vital Signs: Height 4 ft 11 in Weight 50.802 kg Last Vital Signs Pulse 73 04/25/25 09:57 Resp 16 04/25/25 09:57 BP 149/70 H 04/25/25 09:57 Pulse Ox 99 04/25/25 09:57 O2 Del Method Room Air 04/25/25 09:57 Pertinent Lab Results Pertinent Lab Results: CBC 11/2024 WNL Repeat BMP d/t hyponatremia Lab Results 04/25/25 Range/Units 10:54 Sodium 139 (135-145) mmol/L Potassium 4.6 (3.3-5.1) mmol/L Chloride 102 (96-108) mmol/L Carbon Dioxide 29 (22-29) mmol/L Anion Gap 13 (12-20) BUN 10 (9-16) mg/dL Creatinine 0.63 (0.5-1.4) mg/dL Estim Creat Clear Calc 56.6 Estimated GFR > 60 Random Glucose 96 (60-115) mg/dL Calcium 9.7 (8.4-10.2) mg/dL Narrative Narrative: EKG 07/2024 SR @ 65 Low voltage Airway Mallampati Class: III TM Dist: >3cm Neck ROM: Limited Loose/Missing/Broken Teeth: Yes (Missing molars, fillings in front) Heart: RRR Lungs: CTAB Assessment and Plan Assessment Anesthesia Assessment: Anesthesia Plan Discussed and PAT Visit Final Anesthetic Review Family History of Problems with Anesthesia: No History of Problems with Anesthesia: No Documented by User: Romulo Jolly MD 05/09/25 10:57 [facility] Past Medical History Medical History Hyponatremia Arthritis Back pain IBS (irritable bowel syndrome) GERD (gastroesophageal reflux disease) PTSD (post-traumatic stress disorder) Sleep apnea SOB (shortness of breath) Asthma Bronchiectasis Thyroid disease Diabetes Elevated cholesterol Functional capacity: independent ambulation Surgical History Surgical History H/O colonoscopy H/O tubal ligation History of lumpectomy of both breasts History of carpal tunnel surgery of left wrist Hx of hernia repair Hx of tonsillectomy Social History Social History Are you a primary hospice care consultant to a significant other at home: No Do you presently have visiting nurse or other home services: No Patient Tobacco Use Status: Never used Tobacco Use of substances other than those prescribed or required for medical reasons: No Have you been hit, kicked, punched, or otherwise hurt by someone within the past year? If so, by whom?: No Are you DNR?: No Advance Directives: No Advance Directives Information Provided: Yes Advance Directives on File: No Patient : No : No Poor oral hygiene: Yes Meds Allergies Allergy/AdvReac Type Severity Reaction Status Date / Time codeine Allergy Unknown Verified 05/09/25 09:46 Home Medications ?Medication ?Instructions ?Recorded ?Confirmed ?Last Taken ?Type aspirin 81 mg tablet,delayed 81 mg PO DAILY 03/17/25 04/25/25 05/01/25 History release (Adult Low Dose Aspirin) levothyroxine 88 mcg tablet 88 mcg PO DAILY 03/17/25 04/25/25 05/09/25 History linaclotide 145 mcg capsule 145 mcg PO DAILY 03/17/25 04/25/25 Unknown History (Linzess) lorazepam 1 mg tablet 0.5 mg PO DAILY PRN Anxiety 03/17/25 04/25/25 05/09/25 History metformin 500 mg tablet 500 mg PO QPM 03/17/25 04/25/25 Unknown History simvastatin 40 mg tablet 40 mg PO QPM 03/17/25 04/25/25 Unknown History multivitamin 1 tab PO QPM 04/24/25 04/25/25 Unknown History cholecalciferol (vitamin D3) 25 25 mcg PO DAILY 04/25/25 04/25/25 Unknown History mcg (1,000 unit) capsule (Vitamin D3) Exam Exam Date and Time: 05/09/2025 Airway Other: oriented times 3 Assessment and Plan Final Anesthetic Review NPO: Yes Final Preanesthetic Review: No Changes in Pt Med Stat, Meds/Allgs Chart Reviewed, Consent Obtained/Reviewed and Anes Risks/Benef Reviewed Patient Risk: Intermediate Procedure Risk: Intermediate Anesthetic Plan Anesthetic Plan: GA Disposition: Standard PACU
[2025-04-25 11:41] LABS: Anion Gap 13 (12-20); Blood Urea Nitrogen 10 mg/dL (9-16); Calcium 9.7 mg/dL (8.4-10.2); Carbon Dioxide 29 mmol/L (22-29); Chloride 102 mmol/L (96-108); Creatinine Clr Calc Pharmacy 56.6; Estimated Glomerular Filt Rate > 60; Glucose Random 96 mg/dL (60-115); Potassium 4.6 mmol/L (3.3-5.1); Sodium 139 mmol/L (135-145)
[2025-05-09] VITALS (13 sets, daily range): BP systolic 92–155; BP diastolic 39–84; PULSE 63–90; RESP 12–20; TEMP 36.1–37; O2SAT 94–100; BMI 22.5
--- NOTE | ~2025-05-09 | FL_ITS ---
EXAMINATION: XR FLUOROSCOPY WITH IMAGES CLINICAL INFORMATION: ACDF C4-C6 COMPARISON: None available. TECHNIQUE: Fluoroscopy provided to: Dr. Carver Fluoroscopy time: 3.5 seconds. DAP: 0.0636 Gycm2 Images: 2 FINDINGS: 2 fluoroscopic images of the cervical spine taken during ACDF of C4-C6. Please refer to the full operative report for details. FL/FL guidance in OR IMPRESSION: Fluoroscopic guidance. Electronically signed by: Carmelo Mojica MD 05/09/2025 01:51 PM EDT
[2025-05-09] MEDS: Lactated Ringers 1,000 ML 100 ML IVCONT (10:00)
[2025-05-09 10:15] LABS: Glucose, Whole Blood 91 mg/dL (60-115)
--- NOTE | 2025-05-09 11:13 | MHC.SHP ---
Pre-Procedural Eval Section A - 24 Hr Update-Section A only Date of Service: 05/09/25 The patient is an INPATIENT: No Changes since office visit: No Cold of Flu in the past 2 weeks, No New Medical Problems, No Changes in Medication and No Patient answered all questions The patient has been examined within 24 hours of the surgical procedure. The History & Physical has been completed within 30 days and I have reviewed it.: No Section B - Complete if H&P > 30 days Chief Complaint: Cervical disc disorder, unspecified, Allergies: Allergies Allergy/AdvReac Type Severity Reaction Status Date / Time codeine Allergy Unknown Verified 05/09/25 09:46 Review of Systems Sugical H&P ROS: Negative: Constitution, Cardiovascular, Respiratory, Neurological, Psychiatric, Hem-Onc, Allergic/Immunologic, Gastrointestinal, Genitourinary, Musculoskeletal, Integumentary, Endocrine and Eyes/Ears/Nose/Throat Exam Surgical H&P Exam: Normal: HEENT, Normal: Heart, Normal: Lungs, Normal: Extremities, Normal: Abdomen, Normal: Skin and Normal: Neurological (awake, alert,oriented x 3 ) Plan Diagnosis/Plan: Unchanged C4-5, C5-6 anterior cervical diskectomy and fusion Time Spent With Patient Time: 5 min
[2025-05-09] MEDS: Gabapentin 300 MG CAPSULE PO (11:22)
[2025-05-09] MEDS: methocarbamoL 750 MG TABLET PO (11:22)
[2025-05-09] MEDS: ceFAZolin Sodium/Dextrose,Iso 2 GM/50 ML PIGGYBACK IV (11:50)
--- NOTE | 2025-05-09 13:25 | P.OP_ITS ---
Operative Note Operative Note Date of Service: 05/09/25 Narrative: Preoperative Diagnosis: Cervical myelopathy Procedure: []Anterior discectomy, arthrodesis and implantation cage ; [] anterior instrumentation ; local autograft; microscope Informed Consent was obtained for this operation. I have explained the nature, purpose and benefits of the operation. I have discussed the risks and benefit of the operation including possible complications or adverse events with patient/family. Alternative(s) were discussed with the patient with their relative benefits and risks as well as the consequences of not accepting the operation were included in obtaining consent. Surgeon: TU STALLINGS MD, PHD Procedure Assisted By: pasquale Last Description of Procedure: This 69-year-old is suffering from progressive cervical myelopathy. An MRI shows severe degenerative disc disease C4-5 C5-6 with spinal cord compression at these levels. The patient was offered an anterior diskectomy and fusion of these levels The procedure complications were explained. The patient was consen gamaliel. The patient was brought to the operating room and endotracheally intubated. The patient was put in supine position with slight extension of the neck. Prep and drape was done followed by timeout. A mid cervical incision was made followed by opening of the platysma. The prevertebral fascia was reached following the natural planes while the physician medical clerical assistant provided manual retraction. The prevertebral fascia was opened to expose the disc space. A spinal needle was placed in the disk space to confirm the correct level with xray. The longus colli muscles were released bilaterally and a self retaining retractor was inserted. Two [place] pins were placed in the C4-[id number] bodies and distraction was give over the interspace. there was hardly any disc in the disc space due to the degeneration.The discectomy was completed toward the posterior annulus of the disc. Another [place] pin was placed in the body of C6 and distraction was giving over the C5-6 disc space. Initial diskectomy was done towards the posterior annulus. Then I returned my attention to the C4-5 level.The microscope was brought in. The remainder of the discectomy was completed. The posterior ligament was opened and resected to expose the underlying dura. Large compressiveOsteophytes were resected from the body of C4 and C5 and saved for autograft. This immediately relieved the pressure off the spinal cord.Bilateral foraminotomies were done. The endplates were prepared after which a 6 mm cage filled with autograft was inserted into the disc space. A separate attached plate was locked down with 2 x 14 mm screws as anterior instrumentation. And a returned to the C5-6 level. The diskectomy was completed. The posterior longitudinal ligament was over the resected to decompress the underlying spinal cord by removing posterior osteophytes from the body of C5 and C6. Another 6 mm cage was inserted and locked down with 2 x 14 mm screws as anterior instrumentation.Final x-rays in AP and lateral projection showed a satisfactory position of the implants And anterior instrumentation. The physician medical clerical assistant took over. The [place] pins were removed. Hemostasis was done. He closed the incision in 2 layers with a 3-0 Vicryl. Steri-Strips used to approximate incision. An OpSite with Tegaderm was used to cover the incision. All sponge and needle counts were correct. Patient was extubated and tra nsported in stable is to recovery room. Anesthesia: General Estimated Blood Loss (ml): 15 mL Duration of Surgery: 1hour and 15 minutes Postoperative Plan: Discharge home Complications: None
--- NOTE | 2025-05-09 13:37 | PM.DS ---
DS: Providers Provider Date of Service: 05/09/25 Date of discharge: 05/09/25 Primary care physician: Kelly Baumann DO Admitting clinician: Stephen Carver DS: Diagnosis Discharge Diagnosis (1) Cervical disc disorder: Status: Acute DS: Summary Time Attestation Discharge Coordination Time (in mins): 6 Quality: Safe Use of Opioids Does Pt have an Active Cancer Diagnosis on the Problem List?: No Quality: Stroke Does the patient have a stroke diagnosis?: No Physical Exam Vital Signs: Vital Signs: Last Vital Signs Temp 98.6 F 05/09/25 10:15 Pulse 90 05/09/25 10:15 Resp 18 05/09/25 10:15 BP 139/84 05/09/25 10:15 Pulse Ox 100 05/09/25 10:15 O2 Del Method Room Air 05/09/25 10:15 BMI result Body Mass Index 22.5 DS: Data Data Completed and Pending Labs on day of discharge: Laboratory Results - last 24 hr 05/09/25 10:04 POC Glucose 91 Discharge Plan Discharge Patient Disposition: Home, Self-Care Referrals: Kelly Baumann DO [Primary Care Provider] - 1 Week Discharge Medications: New ibuprofen 800 mg tablet 800 mg PO Q8H PRN (Reason: pain) Qty: 30 0RF Continued multivitamin Tablet 1 tab PO QPM cholecalciferol (vitamin D3) [Vitamin D3] 25 mcg (1,000 unit) Capsule 25 mcg PO DAILY simvastatin 40 mg tablet 40 mg PO QPM metformin 500 mg tablet 500 mg PO QPM levothyroxine 88 mcg tablet 88 mcg PO DAILY Linzess 145 mcg capsule 145 mcg PO DAILY lorazepam 1 mg tablet 0.5 mg PO DAILY PRN (Reason: Anxiety) Held aspirin [Adult Low Dose Aspirin] 81 mg tablet,delayed release (DR/EC) 81 mg PO DAILY Hold Instructions: Resume on 05/16/25. You may resume aspirin 1 week after surgery Discharge Orders: Discharge Order (Routine); Ordered 05/09/25 Ordered By: Mike Jorgensen Diet: Advance to usual diet Activity on Discharge: As tolerated Activity Restrictions/Additional Instructions: After your spinal surgery we ask you to observe the following restrictions/guidelines: Activity: It is normal to feel some discomfort as you increase your activity, but that will improve with time. We ask you avoid heavy lifting or acitivities that cause pain. As a general rule, 8lbs is a safe limit for lifting right after surgery. Walk as much as you feel comfortable but not to exhaustion. You will feel extra tired the first few days after surgery. Stay well hydrated. It is OK to walk up and down stairs You may return to driving when you are off narcotics (such as vicodin, oxycodone, dilaudid, etc), and you are back to normal functional capacity. If you have any concerns please check with office before driving. Return to work is specific to each patient and each surgery, so please speak with your doctor/PA at first follow up. Please bring paperwork such as FMLA at that time if you need it filled out. Medications: For optimum pain control, it is best to start with a combination of 500 mg of Tylenol every 4 hours with 800 mg of Motrin every 8 hours. Please wait until the morning after surgery to start Motrin. We will give you a short supply of narcotics after surgery (usually one weeks worth). If you need more please call the office but do not use more than prescribed. You will need to give our office 48 hours notice if you need narcotics refilled and we do not fill narcotics on weekends or evenings. If you are on a narcotic, it is a good idea to take a stool softener such as colace or senna to avoid constipation If you take blood thinner such as aspirin, Plavix, Coumadin, Effient, Eliquis etc for conditions such as Afib, DVT, Pulmonary embolus, coronary disease, stents etc please speak with your surgeon about specific details as to when you can resume these medications. You can resume NSAIDs on post op day 1 (eg: Motrin, Naproxen, etc). Follow up: Please call the office, , after surgery to arrange a 3 week follow up for wound check. Wound Care: You may remove your dressing on the first day after surgery. You may leave open to air. Please do not remove the steri strips underneath. they will fall off on their own in one week. IT IS NORMAL FOR THE WOUND TO OOZE OR BE BLOODY FOR A FEW DAYS AFTER SURGERY. IF THIS HAPPENS JUST PLACE NEW DRESSING OVER IT TO AVOID STAINING CLOTHES. You may shower on post op day # 1 We ask that you do not let the water soak the wound. If it does get wet, just towel dry lightly. Please do not scrub your incision or place any type of chemical/ointment on the wound. No tub baths, pools or jacuzzis for one month. If you have any leaking or redness from your wound, or fevers, please call office Print Language: Monegasque
[2025-05-09] MEDS: HYDROmorphone HCl 0.5 MG/0.5 ML SYRINGE IVPUSH ×4 (13:55→14:30)
[2025-05-09 14:08] LABS: Glucose, Whole Blood 123 mg/dL (60-115)
== END 2025-05-09 15:16 | disposition home or self-care (01) ==
PROVIDERS: Nurse Practitioner; PCP Family Medicine; Visit Provider Neurological Surgery
PROC: (CPT 22551; principal; 2025-05-09 11:30)
DX: M50.021 Cervical disc disorder at C4-C5 level with myelopathy (principal); M50.022 Cervical disc disorder at C5-C6 level with myelopathy; G89.29 Other chronic pain; M19.042 Primary osteoarthritis, left hand; M19.041 Primary osteoarthritis, right hand; E03.9 Hypothyroidism, unspecified; E78.00 Pure hypercholesterolemia, unspecified; E11.9 Type 2 diabetes mellitus without complications; Z79.84 Long term (current) use of oral hypoglycemic drugs; Z79.1 Long term (current) use of non-steroidal anti-inflammatories (NSAID); Z79.82 Long term (current) use of aspirin; Z79.899 Other long term (current) drug therapy; Z88.5 Allergy status to narcotic agent; Z98.890 Other specified postprocedural states
CPT/HCPCS: 22551; 22552; 22853; 20936; 22845; 36415; 80048; 82947; C1713; C1889; J0131; J0690; J1100; J1171; J2003; J2405; J2704; J3010

== ENCOUNTER → 2025-05-09 08:28 | Outpatient (BNV) | payer MEDICARE, OTHER, SELFPAY | PROVIDERS: PCP Family Medicine; Visit Provider Neurological Surgery | DX: M50.021 Cervical disc disorder at C4-C5 level with myelopathy (principal); M50.022 Cervical disc disorder at C5-C6 level with myelopathy | CPT/HCPCS: 20936; 22551; 22552; 22845; 22853; 99499 ==

== ENCOUNTER 2025-05-30 12:45 | Outpatient (AMB) | payer MEDICARE, OTHER, SELFPAY ==
--- OUTSIDE RECORDS SUMMARY | 2025-05-30 13:28 | XMS_ITS | Clinical Summary ---
Author Organization [facility] [employer] Address [address] [address] Care Team Providers Care Nutritionist Public Health Name Role Phone Nadine Harley NP Primary [...] Adults 18 yrs or above (or HM Modifier)([facility]) 1972 Hepatitis C Virus Infection in Adolescents and Adults: Screening (or Modifier) ([facility]) 1972 SDOH Screening Reminder: Elsa batista for all adults ([facility]) 1972 Tobacco Smoking Cessation: i n Adults excluding Women: Behavioral and Pharmacotherapy Interventions ([facility]) 1972 DTaP/Tdap/Td Vaccines ([facility]) (1 - Tdap) 1973 Colorectal Cancer Screening 45 -75 Yrs (or HM Modifier) 1999 Colorectal Cancer: FLEXIBLE SIGMOIDOSCOPY Screening every 5 yrs 1999 Colorectal Cancer: Fecal Imm unochemical Test (FIT) Annually [facility] 1999 Colorectal Cancer: High-sens itivity gFOBT Screening Annually [facility] 1999 Colorectal Cancer: Stool Col oguard Screening every 3 yrs 1999 Colorectal Cancer:CT Colonog navya Screening every 5 yrs 1999 Breast Cancer: Screening Elsa lester age 50-74 yrs (or HM Modifier)([facility]) 2004 Pneumococcal Vaccination Scr eening: Patients 50+ yrs of age ([facility]) (1 of 1 - PCV) 2004 Osteoporosis Screening to Pr event Fractures: Women aged 65 years+ ([facility]) 2019 Zoster/Shingles Vaccine Seri es Screening: Adults aged 18+ yrs (or HM Modifiers)([facility]) (2 of 2) 07/19/2020 05/24/2020 COVID-19 Vaccine Screening: Initial Series and Booster Status ([facility]) ( - 2023- season) 2024 Flu Vaccination: Ages 65+: Y early High Dose Recommended (or Modifier)([facility]) 06/23/2025 RSV Vaccines (1 - 1-dose 75+ series) 2029 Medical Devices Not on file Insurance Care Teams Nutritionist Public Health Relationship Specialty Start Date End Date Nadine Harley NP [address] [place] [address] PCP - General Ocular Care Technician 05/24/20
--- OUTSIDE RECORDS SUMMARY | 2025-05-30 13:28 | XMS_ITS | Clinical Summary ---
Author Organization [facility] Facility Address [address] [place] [address] Care Team Providers Care Winder Tender Name Role Phone Unavailable Primary Care Provider [...] PCV20 or PCV21) 02/24/2017 02/25/2016 Influenza Vaccine (#1) 2025 Pneumococcal Vaccine: Peds ( 0 to 5 Years) and At-Risk Patients (6 to 49 Years) Discontinued 02/25/2016 Hepatitis B Vaccine Aged Out No longe r eligible based on patient's age to complete this topic [place] [address] [place] [address] Medicare
--- OUTSIDE RECORDS SUMMARY | 2025-05-30 13:28 | XMS_ITS | Encounter Summary ---
Author Organization [facility] Address [address] [place] [address] Care Team Providers Care Traffic Worker Name Role Phone Pastor Oro DO, Diana Primary Care Provider + Encounter Details Date Type Department Care Team (Late st Contact Info) Description 05/23/2024 Orders Only [address], [address]th [place] [address] James Joseph MD [address] [place] [phone] Social History Tobacco Use Types Packs/Day Years Used Date Smoking Tobacco: Never Passive Smoke Exposure: Past Smokeless Tobacco: Never Comments:: Alcohol Use Standard Drinks/Week Comments Not Currently 0 (1 standard drink = 0.6 oz pur e alcohol) occasional [facility] Utilities Answer Date Recorded In the past 12 months has e electric, gas, oil, or water [employer] threatened to shut off services in your [...] Care Team (Late st Contact Info) Description 06/09/2025 2:30 PM EDT Follow-Up [facility] Nephrology [address] [facility] [address] [place] [address] Bipin Bobby MD [address] [place] [id number] documented as of this encounter Visit Diagnoses Not on filedocumented in this encounter Care Teams Traffic Worker Relationship Specialty Start Date End Date Kelly Baumann DO [address] [place] [phone] PCP - General Family Medicine 03/24/24 documented as of this encounter
--- NOTE | 2025-05-30 13:32 | A.SPINEOV_ITS ---
Intake Visit Reasons: 1st post op Intake Note: Mrs. Alaniz is here today for her 1st post op. Photograph Developer Required: No Allergies codeine Allergy (Verified 05/30/25 13:38) Unknown Assessment & Plan Assessment & Plan (1) Cervical disc disorder: Code(s): M50.90 - Cervical disc disorder, unspecified, unspecified cervical region Category: Medical Plan Kacy is a pleasant 69 y/o F who underwent C4-[address] Carver on 05/09/25. She had a 2 level ACDF completed for cervical myelopathy. She comes her 1st postoperative appointment today accompanied by her who helps provide some of her history. She reports that she has had a somewhat difficult time with pain control since surgery, however has been utilizing only occasional [id number] ibuprofen/Tylenol, as she is not able to tolerate narcotic pain medication due to a severe constipation issue. Despite this, her reports that she has done much better since her surgery. She no longer has severe balance issues, and is able to walk in a straight line with 1 ft in front of the other. In terms of her pain in his primarily posterior neck pain, which we discussed his a normal complication of the surgery. This should resolve in time. No new neurological deficits. The patient ambulates well and rises from seated position without difficulty. She uses no assistive devices to ambulate. Her anterior incision site is closed and well healing. I would like to follow up with the patient again in 6 weeks for her 2nd postoperative visit with a set of x-rays. Tunde Carver MD,PhD [facility] Coding Level of Care Code Global (48879) Diagnoses Cervical disc disorder M50.90
== END 2025-05-30 14:58 | disposition home or self-care (01) ==
LOC: HO.HNS 12:46
PROVIDERS: PCP Family Medicine; Visit Provider Physician Assistant
DX: M50.90 Cervical disc disorder, unspecified, unspecified cervical region (principal)
CPT/HCPCS: 99024

== ENCOUNTER → 2025-05-30 12:45 | Outpatient (BNVA) | payer MEDICARE, OTHER, SELFPAY | PROVIDERS: PCP Family Medicine; Visit Provider Physician Assistant | DX: Z48.89 Encounter for other specified surgical aftercare (principal); M50.90 Cervical disc disorder, unspecified, unspecified cervical region; Z98.890 Other specified postprocedural states | CPT/HCPCS: 99212 ==

== ENCOUNTER 2025-07-13 08:37 | Outpatient (REF) | payer MEDICARE, OTHER, SELFPAY ==
--- NOTE | ~2025-07-13 | XR_ITS ---
EXAMINATION: XR CERVICAL SPINE CLINICAL INFORMATION: M50.90 - Cervical disc disorder, unspecified, unspecified cervical region COMPARISON: March 17, 2025 TECHNIQUE: Lateral views in neutral, flexion and extension position. AP view. FINDINGS: Status post intervertebral discs spacer placement/arthrodesis at C4-5 and C5-6 levels with normal alignment and no motion during flexion and or extension position. Endplate sclerosis subchondral cyst formation decreased intervertebral disc height and marginal osteophyte formation at C3-4. Craniocervical junction is intact. Upper airway is patent. XR/XR cervical spine 4V IMPRESSION: Status post intervertebral disc spacer placement/arthrodesis C4-5 C5-6 without gross instability. Electronically signed by: Nixon Knox MD 07/13/2025 09:59 AM EDT
--- OUTSIDE RECORDS SUMMARY | 2025-07-13 09:35 | XMS_ITS | Clinical Summary ---
Author Organization [facility] Facility Address [address] [place] [address] Care Team Providers Care Tree Trimmer Name Role Phone Unavailable Primary Care Provider [...] age to complete this topic Insurance [place] [address] [place] [address] Medicare
--- OUTSIDE RECORDS SUMMARY | 2025-07-13 09:35 | XMS_ITS | Clinical Summary ---
Author Organization [facility] [employer] Address [address] [address] [place] [address] Care Team Providers Care Risk Control Specialist Name Role Phone Nadine Harley NP Primary [...] Adults 18 yrs or above (or HM Modifier)([facility]) 1972 Hepatitis C Virus Infection in Adolescents and Adults: Screening (or Modifier) ([facility]) 1972 SDOH Screening Reminder: Elsa batista for all adults ([facility]) 1972 Tobacco Smoking Cessation: i n Adults excluding Women: Behavioral and Pharmacotherapy Interventions ([facility]) 1972 DTaP/Tdap/Td Vaccines ([facility]) (1 - Tdap) 1973 Colorectal Cancer Screening 45 -75 Yrs (or HM Modifier) 1999 Colorectal Cancer: FLEXIBLE SIGMOIDOSCOPY Screening every 5 yrs 1999 Colorectal Cancer: Fecal Imm unochemical Test (FIT) Annually [facility] 1999 Colorectal Cancer: High-sens itivity gFOBT Screening Annually [facility] 1999 Colorectal Cancer: Stool Col oguard Screening every 3 yrs 1999 Colorectal Cancer:CT Colonog navya Screening every 5 yrs 1999 Breast Cancer: Screening Elsa lester age 50-74 yrs (or HM Modifier)([facility]) 2004 Pneumococcal Vaccination Scr eening: Patients 50+ yrs of age ([facility]) (1 of 1 - PCV) 2004 Osteoporosis Screening to Pr event Fractures: Women aged 65 years+ ([facility]) 2019 Zoster/Shingles Vaccine Seri es Screening: Adults aged 18+ yrs (or HM Modifiers)([facility]) (2 of 2) 07/19/2020 05/24/2020 COVID-19 Vaccine Screening: Initial Series and Booster Status ([facility]) ( - 2023- season) 2024 Flu Vaccination: Ages 65+: Y early High Dose Recommended (or Modifier)([facility]) 06/23/2025 RSV Vaccines (1 - 1-dose 75+ series) 2029 Medical Devices Not on file Insurance Care Teams Risk Control Specialist Relationship Specialty Start Date End Date Nadine Harley NP [address] [place] [address] PCP - General Pleater 05/24/20
--- OUTSIDE RECORDS SUMMARY | 2025-07-13 09:35 | XMS_ITS | Encounter Summary ---
Author Organization [facility] Address [address] [place] [address] Care Team Providers Care Expeller Worker Name Role Phone Pastor Oro DO, Diana Primary Care Provider + Encounter Details Date Type Department Care Team (Late st Contact Info) Description 05/23/2024 Orders Only [address], [address]th [place] [address] James Joseph MD [address] [place] [phone] Social History Tobacco Use Types Packs/Day Years Used Date Smoking Tobacco: Never Passive Smoke Exposure: Past Smokeless Tobacco: Never Comments:: Alcohol Use Standard Drinks/Week Comments Not Currently 0 (1 standard drink = 0.6 oz pur e alcohol) occasional [facility] Utilities Answer Date Recorded In the past 12 months has e electric, gas, oil, or water [employer] threatened to shut off services in your [...] Care Team (Late st Contact Info) Description 12/12/2025 11:45 AM EST Follow-Up [facility]phrology [address] [facility] [address] [place] [address] Bipin Bobby MD [address] [place] [phone] documented as of this encounter Visit Diagnoses Not on filedocumented in this encounter Care Teams Expeller Worker Relationship Specialty Start Date End Date Kelly Baumann DO [address] [place] [address] PCP - General Family Medicine 03/24/24 documented as of this encounter
== END 2025-07-13 08:38 | disposition home or self-care (01) ==
LOC: HO.HOSX 08:37
PROVIDERS: Visit Provider Physician Assistant
DX: Z47.89 Encounter for other orthopedic aftercare (principal); M50.821 Other cervical disc disorders at C4-C5 level; M50.222 Other cervical disc displacement at C5-C6 level
CPT/HCPCS: 72050; 99212

== ENCOUNTER 2025-07-13 09:17 | Outpatient (AMB) | payer MEDICARE, OTHER, SELFPAY ==
--- NOTE | 2025-07-13 09:50 | A.SPINEOV_ITS ---
Intake Visit Reasons: 2nd post op with xrays Intake Note: Ms. Alaniz is here today for her 2nd post op with xrays. Can Crimper Required: No Allergies codeine Allergy (Verified 07/13/25 09:50) Unknown Assessment & Plan Assessment & Plan (1) Cervical disc disorder: Code(s): M50.90 - Cervical disc disorder, unspecified, unspecified cervical region Category: Medical Plan Procedure: C4-6 ACDF Kacy is a pleasant 69 year old female who comes in today for her 2nd postop visit after having C4-[address] Carver on 05/09/25. To recap during her last visit she was still reporting some posterior neck pain. She reports that this largely as resolved, but did raise in other concerns during this visit. She states that intermittently when ranging her neck she will experience a loud clicking noise which is accompanied by pain. Her accompanies her to this visit today in attest that is a very loud noises that can be heard over the radio/TV. I reviewed the patient's x-ray images with the patient and her present, which shows stable placement of her surgical construct in no notable changes from fluoroscopy. Given this there does appear to be quite a bit of degeneration above the surgical site, which may be contributing to the clicking sensation. No new neurological deficits. The patient ambulates well and rises from a seated position without difficulty. Anterior incision site appears closed and well healed. I would like to obtain a CT scan of the Cervical spine to R/O a hardware related issue, and to better evaluate the osteophyte growth above the surgical construct. Tunde Carver MD,PhD [facility] Orders: Orders XR cervical spine 4V Today M50.90 - Cervical disc disorder, unspecified, unspecified cervical region CT cervical spine wo IV con Today M50.90 - Cervical disc disorder, unspecified, unspecified cervical region Coding Level of Care Code Global (67985) Diagnoses Cervical disc disorder M50.90
== END 2025-07-13 10:30 | disposition home or self-care (01) ==
LOC: HO.HNS 09:18
PROVIDERS: PCP Family Medicine; Visit Provider Physician Assistant
DX: M50.90 Cervical disc disorder, unspecified, unspecified cervical region (principal)
CPT/HCPCS: 99024

== ENCOUNTER → 2025-07-13 09:21 | Outpatient (BNV) | payer MEDICARE, OTHER, SELFPAY | PROVIDERS: Visit Provider Radiology Diagnostic Radiology | DX: M50.90 Cervical disc disorder, unspecified, unspecified cervical region (principal) | CPT/HCPCS: 72050 ==

== ENCOUNTER 2025-10-27 11:14 | Outpatient (AMB) | payer MEDICARE, OTHER, SELFPAY ==
--- NOTE | 2025-10-27 11:21 | HO.SPINEOV ---
Intake Visit Reasons: Neck pain CT f/u Intake Note: Mrs. Alaniz is here today to F/u on the results to her CT. Security Installation Technician Required: No Allergies codeine Allergy (Verified 07/13/25 09:50) Unknown Assessment & Plan Assessment & Plan (1) Cervical disc disorder: Code(s): M50.90 - Cervical disc disorder, unspecified, unspecified cervical region Category: Medical Plan Mrs Alaniz Is here in follow-up. Please refer to Tunde MUNOZ note for the specifics of why she is here in follow up today. Her CAT scan was done at [facility], was reviewed by Dr. Carver and myself, there is evidence of fusion of the interbody cages at C4-5 and C5-6 with no evidence of pseudoarthrosis of the hardware. She has degenerative disc disease at C3-4 and C6-7, slight spondylolisthesis at C7-T1. Her x-rays were reviewed as well and there is no signs of a spondylolisthesis shifting. 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 She just has a very arthritic neck and combined with the fusions, it is gives her reduced range of motion and increased stiffness. None of this is dangerous. She had been reporting a snapping sound in her neck when she turns her head at times. We do not see anything on the imaging to suggest that is a sign of instability, but rather it is more likely a tendon are muscular phenomenon. Her myelopathic symptoms went away after the surgery. All in all I think things are success for her in terms of surgical outcome, but she is just unfortunately has overall poor quality of disks in her neck. I reassured her,. She can follow up on an as-needed basis. Total amount of time spent in this visit was 20 minutes in discussion of symptoms, cervical CT imaging results and subsequent plan of care Mike Carver MD,PhD [facility] Coding Level of Care Code Est Pt Level 3 (21960) Diagnoses Cervical disc disorder M50.90
== END 2025-10-27 12:59 | disposition home or self-care (01) ==
LOC: HO.HNS 11:15
PROVIDERS: Visit Provider Physician Assistant
DX: M50.90 Cervical disc disorder, unspecified, unspecified cervical region (principal)
CPT/HCPCS: 99213

== ENCOUNTER → 2025-10-27 11:14 | Outpatient (BNVA) | payer MEDICARE, OTHER, SELFPAY | PROVIDERS: Visit Provider Physician Assistant | DX: Z71.2 Person consulting for explanation of examination or test findings (principal); M54.2 Cervicalgia | CPT/HCPCS: 99212 ==